=== PATIENT | male | born 1970 | race Caucasian/White ===

== ENCOUNTER → 2017-09-24 08:30 | Outpatient (CLI) | payer OTHER, SELFPAY ==
--- NOTE | 2017-09-24 08:35 | RAD_ITS ---
STUDY: X-RAY - ESOPHAGUS (BARIUM SWALLOW) WITH FLUOROSCOPY REASON FOR EXAM: Male, 47 years old. Dysphagia. TECHNIQUE: 15 view(s) of the esophagus were obtained following swallowing of barium. FLUOROSCOPY TIME (if supplied): (0:33) minutes/seconds COMPARISON: None. FINDINGS: There is no demonstrated esophageal foreign body. There is no demonstrated stricture or mucosal abnormality. Normal gastroesophageal junction, without a demonstrated hiatal hernia. The patient ingested a 12 mm tablet of barium without any difficulty. Normal visualized aortic arch and descending thoracic aorta. Normal visualized pulmonary parenchyma. Normal visualized osseous structures of the thorax. RAD/Esophagus Only IMPRESSION: Normal plain film x-ray examination (barium swallow) of the esophagus. Electronically Signed: Dre Luna MD at 9:37 EDT Tel [phone], Service support ,
== END ==
PROVIDERS: Family Provider Internal Medicine; PCP Internal Medicine; Visit Provider Internal Medicine Gastroenterology
DX: R13.10 Dysphagia, unspecified (principal)
CPT/HCPCS: 74220

== ENCOUNTER → 2018-07-09 08:55 | Outpatient (CLI) | payer OTHER, SELFPAY ==
[2018-07-09 10:08] LABS: Absolute Lymphocyte Count 1.43 X10^3/ul (0.83-4.51); Absolute Neutrophil Count 4.3 X10^3/uL (2.0-7.7); Basophil# 0.03 X10^3/uL; Basophil% 0.5 % (0-1); Eosinophil# 0.18 X10^3/uL; Eosinophils% 2.7 % (0-5); Hematocrit 46.3 % (40-54); Hemoglobin 15.6 g/dl (13.0-16.5); Lymphocyte # 1.43 X10^3/ul (4.0); Lymphocyte % 21.8 % (19-41); Mean Corp Hgb Conc 33.7 g/gl (32-36); Mean Corpuscular Hgb 31.6 pg (27.0-32.0); Mean Corpuscular Volume 93.7 fL (80-94); Mean Platelet Vol. 11.5 fl (6.2-12.0); Monocyte# 0.67 X10^3/uL; Monocyte% 10.2 % (0-10); Neutrophil # 4.26 X10^3/uL (2.7-7.7); Neutrophil % 64.8 % (47-70); Platelet Count 267 K/mm3 (150-450); RBC Distribution Width CV 12.4 % (11.6-14.6); RBC Distribution Width SD 41.8 fl (35.1-43.9); Red Blood Count 4.94 M/mm3 (4.6-6.2); White Blood Count 6.6 K/mm3 (4.4-11.0)
[2018-07-09 10:12] LABS: POSITIVE COUNT NO; POSITIVE DIFFERENTIAL NO; POSITIVE MORPHOLOGY NO
[2018-07-09 10:14] LABS: Erythrocyte Sedimentation Rate 4 mm/hr (0-15)
[2018-07-09 10:20] LABS: CRP < 2.90 mg/L (0.0-3.0); Rheumatoid Factor < 10.0 IU/mL (<15); Uric Acid 5.2 mg/dL (3.5-7.2)
[2018-07-11 11:22] LABS: ANTINUCLEAR ANTIBODIES DIRECT Negative (Negative)
--- OUTSIDE RECORDS SUMMARY | 2018-09-10 05:32 | XMS RPT_ITS ---
:1970 Author Organization [facility] Address [address] [place] [address] [place] [address] Phone Care Team Providers Name Role Phone Zoë Carrero PA-C Unavailable Reason for Visit Reason For Visit Description Start Date Postop - 1st visit Preliminary reason for visit data, not yet signed by the author as of right shoulder post Right glenohumeral debridement debriding capsule labrum cartilage to both anterior and posterior portals Capsular release Biceps tenodesis Subacromial decompression with acromioplasty Distal clavicle excision on 06/12/2018 Preliminary reason for visit data, not yet signed by the author as of Chief Complaint Chief Complaint Description Start Date right shoulder post Right glenohumeral debridement debriding capsule labrum cartilage to both anterior and posterior portals Capsular release Biceps tenodesis Subacromial decompression with acromioplasty Distal clavicle excision on 06/12/2018 Preliminary chief complaint data, not yet signed by the author as of Instructions Instruction Description Start Date Patient advised to follow-up with Primary Care Physician for BMI management. Plan of Care Type Date Detail Appointment 10:30 AM Zoë Carrero PA-C, [address] [facility], [address], [place], [address], Appointment 09:15 AM Anand Ochoa MD, [address] [facility], [address], [place], [address], Medications Medication Instructions Start Stop Generic Name NDC Provider Date Date PERCOCET 5-325 Take 1-2 tablets OXYCODONE-ELAINA [id number] Zoë MG TABS by mouth every 4 4 TAMINOPHEN [place] hours as needed PA-C for pain PERCOCET 5-325 Take 1-2 tablets OXYCODONE-ELAINA 82293024676 Zoë MG TABS by mouth every 4 6 TAMINOPHEN [place] hours as needed PA-C for pain NABUMETONE 750 1 tablet daily NABUMETONE 09392837780 Anand R MG TABS 6 Don HOPKINS VITAMIN E CAPS 1 tablet daily VITAMIN E 50296149409 Anand R 6 CAPS oDn HOPKINS IBUPROFEN 200 As needed IBUPROFEN [id number] Anand R MG TABS 6 Don HOPKINS [facility] Two tablets GLUCOSAMINE-C 60393026714 Anand R GLUCOSAMINE-CH daily 6 HONDROITIN Don HOPKINS ONDROITIN TABS TABS BEE POLLEN Two capsules BEE POLLEN 48911346216 Anand R CAPS daily 6 CAPS Don HOPKINS Conditions or Problems Problem Name Problem Onset Status Entry Provider Comment Standard Annotate Code Date Date Description Primary M19.011 Active Anand R 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 Vital Signs Date Name Value Unit Description BMI (Body Mass 28.35 kg/m2 Body Mass Index Index) [Ratio] Preliminary vital sign data, not yet signed by the author as of BP Diastolic 76 mm[Hg] blood pressure, diastolic Preliminary vital sign data, not yet signed by the author as of BP Systolic 116 mm[Hg] blood pressure, systolic Preliminary vital sign data, not yet signed by the author as of Heart Rate 71 /min pulse rate E&M Preliminary vital sign data, not yet signed by the author as of Height 74 [in_us] height E&M Preliminary vital sign data, not yet signed by the author as of Height 188 cm height in centimeters E&M Preliminary vital sign data, not yet signed by the author as of Weight Measured 220 [lb_av] weight E&M Preliminary vital sign data, not yet signed by the author as of Weight Measured 100 kg weight in kilograms E&M Preliminary vital sign data, not yet signed by the author as of Results Date Name Value Unit Range Flag Description Office Visit: Postop - 1st visit, Rm: 41 MEDS REVIEW Done Documentation of current medications (procedure) Preliminary observation data, not yet signed by the author as of Preliminary observation data, not yet signed by the author as of Clinical Summary: HMSPatientID OOP account number Procedures Code Procedure Name Date Entry Date CPT-67999 Physical Therapy G8730 Pain assessment documented as positive - follow-up documented G8427 Current medications documented 1036F Tobacco screening was negative - non user G8417 BMI documented as above normal parameters - follow-up documented G8783 Blood pressure within normal parameters - no follow-up required 1006F Osteoarthritis symptoms and functional status assessed [facility]-[id number] Patient Encounter Medications Administered No information available. Immunizations No information available. Advance Directives There may be information available, but it has not been provided by the sender. Assessments There may be information available, but it has not been provided by the sender. Review of Systems There may be information available, but it has not been provided by the sender. Family History There may be information available, but it has not been provided by the sender. History of Past Illness There may be information available, but it has not been provided by the sender. History of Present Illness There may be information available, but it has not been provided by the sender.
--- OUTSIDE RECORDS SUMMARY | 2018-09-10 05:32 | XMS RPT_ITS ---
:1970 Author Organization [facility] Address [address] [place] [id number] Phone Care Team Providers Name Role Phone Anand Ochoa MD Reason for Visit Reason For Visit Description Start Date Preop conference Preliminary reason for visit data, not yet signed by the author as of right shoulder pain Preliminary reason for visit data, not yet signed by the author as of Chief Complaint Chief Complaint Description Start Date right shoulder pain Preliminary chief complaint data, not yet signed by the author as of Instructions Instruction Description Start Date Patient advised to follow-up with Primary Care Physician for BMI management. Plan of Care Type Date Detail Appointment 08:30 AM Anand Ochoa MD, [address] [facility], [address], [place], [address], Appointment 08:30 AM Anand Ochoa MD, [address] [facility], [address], [place], [address], Appointment 10:00 AM Zoë Gray PA-C, [address] [facility], [address], [place], [address], Medications Medication Instructions Start Stop Generic Name NDC Provider Date Date NABUMETONE 750 1 tablet daily NABUMETONE [id number] Anadn Vernon MG TABS 6 Don HOPKINS VITAMIN E CAPS 1 tablet daily VITAMIN E 42566383396 Anand Vernon 6 CAPS Don HOPKINS IBUPROFEN 200 As needed IBUPROFEN 95024170748 Anand R MG TABS 6 Don HOPKINS [facility] Two tablets GLUCOSAMINE-C 27567494047 Anand R GLUCOSAMINE-CH daily 6 HONDROITIN Don HOPKINS ONDROITIN TABS TABS BEE POLLEN Two capsules BEE POLLEN 69161611001 Anand R CAPS daily 6 CAPS Don HOPKINS Conditions or Problems Problem Name Problem Onset Status Entry Provider Comment Standard Annotate Code Date Date Description Primary M19.011 Active Anand R Primary osteoarthritis (ICD-10-C / Don HOPKINS osteoarthrit right shoulder M) is, right shoulder Allergies, Adverse Reactions, Alerts Allergy Name Reaction Start Date Severity Status Provider Description VICODIN Itch Severe Active Anand R Don (HYDROCODONE-A CETAMINOPHEN TABS) Social History No information available. Vital Signs Date Name Value Unit Description BMI (Body Mass 28.73 kg/m2 Body Mass Index Index) [Ratio] Preliminary vital sign data, not yet signed by the author as of BP Diastolic 79 mm[Hg] blood pressure, diastolic Preliminary vital sign data, not yet signed by the author as of BP Systolic 111 mm[Hg] blood pressure, systolic Preliminary vital sign data, not yet signed by the author as of Heart Rate 73 /min pulse rate E&M Preliminary vital sign data, not yet signed by the author as of Height 74 [in_us] height E&M Preliminary vital sign data, not yet signed by the author as of Height 188 cm height in centimeters E&M Preliminary vital sign data, not yet signed by the author as of Weight Measured 223 [lb_av] weight E&M Preliminary vital sign data, not yet signed by the author as of Weight Measured 101 kg weight in kilograms E&M Preliminary vital sign data, not yet signed by the author as of Results Date Name Value Unit Range Flag Description Office Visit: Preop conference, Rm: 40 MEDS REVIEW Done Documentation of current medications (procedure) Preliminary observation data, not yet signed by the author as of MRI HX of the right MRI (magnetic shoulder on resonance 11/07/2017 at imaging) history [facility] Preliminary observation data, not yet signed by the author as of XRAY HX of the right xray history shoulder on 08/2017 at [place] Preliminary observation data, not yet signed by the author as of Preliminary observation data, not yet signed by the author as of Clinical Summary: HMSPatientID OOP account number Procedures Code Procedure Name Date Entry Date CPT-42832 Physical Therapy [id number] POLAR CARE [place] COMBO - SHOULDER (BREG) [id number] INTELLO-BARB PAD - SHOULDER (BREG) G8730 Pain assessment documented as positive - follow-up documented G8427 Current medications documented 1036F Tobacco screening was negative - non user G8417 BMI documented as above normal parameters - follow-up documented G8783 Blood pressure within normal parameters - no follow-up required 1006F Osteoarthritis symptoms and functional status assessed [facility]-[id number] Patient Encounter Medications Administered No information available. [...]
--- OUTSIDE RECORDS SUMMARY | 2018-09-10 05:32 | XMS RPT_ITS ---
:1970 Author Organization [facility] Address [facility] [place] [address] Phone Care Team Providers Name Role Phone Anand Ochoa MD Reason for Visit Reason For Visit Description Start Date New - 1st visit with practice Preliminary reason for visit data, not yet [...] Plan of Care Type Date Detail Appointment 02:30 PM Anand Ochoa MD, [address] [facility], [place], [address], Medications Medication Instructions Start Stop Generic Name [facility] Provider Date Date IBUPROFEN 800 Take 1 tablet by IBUPROFEN 03735005272 Anand R MG TABS mouth 3 times a 6 Don HOPKINS day IBUPROFEN 200 As needed IBUPROFEN 58157115991 Anand R MG TABS 6 Don HOPKINS [facility] Two tablets GLUCOSAMINE-C 66652064127 Anand Vernon GLUCOSAMINE-CH daily 6 HONDROITIN Don HOPKINS ONDROITIN TABS TABS BEE POLLEN Two capsules BEE POLLEN 19262419463 Anand Vernon CAPS daily 6 CAPS Don HOPKINS Conditions or Problems Problem Name Problem Onset Status Entry Provider Comment Standard Annotate Code Date Date Description Primary M19.011 Active Anand Vernon Primary osteoarthritis (ICD-10-C / Don HOPKINS osteoarthrit right shoulder M) is, right shoulder Allergies, Adverse Reactions, Alerts Allergy Name Reaction Start Date Severity Status Provider Description VICODIN Itch Severe Active Anand R Don (HYDROCODONE-A CETAMINOPHEN TABS) Social History Concept Description Observation Name Observation Value Units Start Date Alcohol intake ALCOHOL COMM socially Preliminary social history data, not yet signed by the author as of Alcohol use ETOH USE Yes Preliminary social history data, not yet signed by the author as of Details of drug DRUG USE No misuse behavior Preliminary social history data, not yet signed by the author as of 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 Preliminary social history data, not yet signed by the author as of Never smoker SMOK STATUS never smoker Preliminary social history data, not yet signed by the author as of Vital Signs Date Name Value Unit Description BMI (Body Mass 28.73 kg/m2 Body Mass Index Index) [Ratio] Preliminary vital sign data, not yet signed by the author as of BP Diastolic 79 mm[Hg] blood pressure, diastolic Preliminary vital sign data, not yet signed by the author as of BP Systolic 126 mm[Hg] blood pressure, systolic Preliminary vital sign [...] Value Unit Range Flag Description Office Visit: New - 1st visit with practice, Rm: 40 MEDS REVIEW Done Documentation of current medications (procedure) Preliminary observation data, not yet signed by the author as of SMOK STATUS never smoker Tobacco smoking status NHIS Preliminary observation data, not yet signed by the author as of Preliminary observation data, not yet signed by the author as of MRI HX of the Right MRI (magnetic shoulder on resonance 11/07/2017 at imaging) history [facility] Preliminary observation data, not yet signed by the author as of XRAY HX of the Right xray history shoulder on 08/22/2017 at [facility] Preliminary observation data, not yet signed by the author as of Clinical Summary: Scanned ROS Summary ROS: Denies genitourinary review of systems, E&M ROS: GI Denies ROS gastrointestinal E&M ROS ENDO Denies endocrine ROS ROS MSK COMM Joint ROS Musculoskeletal Pain,Stiffness comments ROS:MUSCSKEL Complains ROS musculoskeletal E&M ROS: PSYCH Denies ROS psychiatric E&M ROS HEME Denies ROS hematologic/lymphatic E&M ROS SKIN Denies ROS skin E&M ROS ENT Denies ROS ENT E&M ROS:GENERAL Denies ROS general E&M ROS: NEURO Denies ROS neurological E&M ROS:PULMON Denies ROS pulmonary E&M ROS: CARDIAC Denies ROS cardiovascular E&M Clinical Summary: HMSPatientID OOP account number Procedures Code Procedure Name Date Entry Date CPT-28242 Major Joint or Bursa injection G8730 Pain assessment documented as positive - follow-up documented G8427 Current medications documented 1036F Tobacco screening was negative - non user G8417 BMI documented as above normal parameters - follow-up documented G8783 Blood pressure within normal parameters - no follow-up required 1006F Osteoarthritis symptoms and functional status assessed [facility]-[id number] Patient Encounter Medications Administered No information available. [...]
--- OUTSIDE RECORDS SUMMARY | 2018-09-10 05:32 | XMS RPT_ITS ---
:1970 Author Organization OHIP Care Team Providers Name Role Phone MALICK LEOS MD Admitting Unavailable MALICK LEOS MD Attending Unavailable MALICK LEOS MD Primary Care Unavailable Faith DOMerlynShivani Attending Unavailable Fast DO, Lavonne A Referring Unavailable Faith MILLER, Shivani Consulting Unavailable Philip Masterson Attending Unavailable Philip Masterson Referring Unavailable Faith Shivani Primary Care Unavailable Benjamin Brothers Attending Unavailable Benjamin Brothers Referring Unavailable Faith Shivani Primary Care Unavailable PROBLEMS PROBLEMS DATE TYPE CONDITION / CODE ATTENDING STATUS SOURCE 07/09/2018 Unknown M19.042 - Philip Masterson Active Karolina [facility], [facility] left hand / Repository M19.042(ICD-10) PROCEDURES PROCEDURES No Procedure Records FoundRESULTS RESULTS CBC W/DIFF, AUTOMATED Collected: 07/09/2018 Status: F Source: [place] 9:00 AM [facility] REPOSITORY TYPE CODE TESTS RESULT OUT OF RANGE REFERENCE UNITS LAB L100.1000 4.4-11.0 K/mm3 Normal WBC 6.6 LAB L100.1200 4.6-6.2 M/mm3 Normal RBC 4.94 LAB L100.1300 13.0-16.5 g/dl Normal HGB 15.6 LAB L100.1400 40-54 % Normal HCT 46.3 LAB L100.1500 80-94 fL Normal MCV 93.7 LAB L100.1600 27.0-32.0 pg Normal MCH 31.6 LAB L100.1700 32-36 g/gl Normal MCHC 33.7 LAB L100.1810 11.6-14.6 % Normal RDW CV 12.4 LAB L100.1820 35.1-43.9 fl Normal RDW SD 41.8 LAB L100.1900 150-450 K/mm3 Normal PLT 267 LAB L100.2000 6.2-12.0 fl Normal MPV 11.5 LAB L100.2100 47-70 % Normal NEUT% 64.8 LAB L100.2200 19-41 % Normal LY% 21.8 LAB L100.2300 0-10 % High MONO% 10.2 LAB L100.2400 0-5 % Normal EO% 2.7 LAB L100.2500 0-1 % Normal BASO% 0.5 LAB L100.2550 0.0-0.9 % Normal IM GRAN % 0.000 Result Comment: IG% - Immature Granulocytes (promyelocytes, myelocytes and metamyelocytes) > 1% indicates that a LEFT SHIFT is Present. LAB L100.2620 2.0-7.7 X10 3/uL Normal Absolute Neut 4.3 LAB L100.2720 0.83-4.51 X10 3/ul Normal Absolute Lymph 1.43 Performed By: #### L100.0100, L101.9900 #### [facility] [address] [place], [place], [id number] ERYTHROCYTE SED RATE Collected: 07/09/2018 Status: F Source: [place] 9:00 AM [facility] REPOSITORY TYPE CODE TESTS RESULT OUT OF RANGE REFERENCE UNITS LAB L102.0000 0-15 mm/hr Normal SED RATE 4 Performed By: #### L100.0100, L101.9900 #### [facility] [address] [place], [place], [id number] URIC ACID Collected: 07/09/2018 Status: F Source: [place] 9:00 AM [facility] REPOSITORY TYPE CODE TESTS RESULT OUT OF RANGE REFERENCE UNITS LAB L501.1400 3.5-7.2 mg/dL Normal URIC 5.2 Result Comment: The drugs N-Acetylcysteine and Metamizole may falsely depress this assay. Performed By: #### L501.1400, L501.6710, L505.7010 #### [facility] [address] [place], [place], [address] CRP Collected: 07/09/2018 Status: F Source: [place] 9:00 AM [facility] REPOSITORY TYPE CODE TESTS RESULT OUT OF RANGE REFERENCE UNITS LAB L501.6710 0.0-3.0 mg/L Normal < 2.90 C-REACTIVE PROT Result Comment: C-Reactive Protein (CRP) provides useful information for the diagnosis, therapy and monitoring of inflammatory processes and associated diseases. For the evaluation of Relative Risk for Cardiovascular Disease, a High Sensitivity CRP (HSCRP) should be ordered. Performed By: #### L501.1400, L501.6710, L505.7010 #### [facility] [address] [facility]. [place], [place], [address] RHEUMATOID FACTOR Collected: 07/09/2018 Status: F Source: [place] 9:00 AM [facility] REPOSITORY TYPE CODE TESTS RESULT OUT OF RANGE REFERENCE UNITS LAB L505.7010 <15 IU/mL Normal RHEUMATOID FAC < 10.0 Performed By: #### L501.1400, L501.6710, L505.7010 #### [facility]. [place], [place], [address] ANTINUCLEAR ANTIBODIES Collected: 07/09/2018 Status: F Source: [place] DIRECT 9:00 AM [facility] REPOSITORY TYPE CODE TESTS RESULT OUT OF RANGE REFERENCE UNITS LAB L3100.5475 Negative Normal Negative ALF-DIRECT Result Comment: Performed at: - [facility] [address] [id number] Box Finisher: Benjamin Crane PhD, Phone: [phone] Performed By: #### L3100.5475 #### [facility] (refer to report for specific site) refer to report for address and phone number CV ECHO COMPLETE Observed: 03/03/2018 Status: F [facility] [place] [address] Patient: LEEANNE ANDRADE Phone#: : 1970 Age: 47 Gender: M Pt. Type: Out Account: [id number] Location: Ordering: MALICK DemianYuki VIGNESHSUMEET Exam Date: 03/03/2018/8:42 Family Phys: Charge Code: [id number] Physician: [place] Order #: [id number] DLP Dose#: PROCEDURE: ECHOCARDIOGRAM WITH DOPPLER AND COLOR FLOW HISTORY: 47-year-old male with family history of CAD INDICATIONS: Murmur TECHNIQUE: A 2-D ultrasound, color spectral Doppler and M-mode evaluation of the heart and great vessels. PATIENT MEASUREMENTS: Height (in.): 74 BSA: 2.3 Weight (lbs.): 220 BP: 130/82 Head End Desizing Machine Operator: HOPE M MODE 2D MEASUREMENTS AND CALCULATIONS: LVIDd: 5.29 cm LVIDs: 3.58 cm IVSd: 1.23 cm LVPWd: 0.96 cm FS: 32.28 % Ao Root diam: 3.67 cm LA diam: 3.51 cm LA Volume Index: 20.9 mL/m2 LA A4 Area: 14.6 cm RA A4 Area: 16.1 cm2 RVDd: 2.96 cm TAPSE: 18 mm DOPPLER MEASUREMENTS AND CALCULATIONS MITRAL MV E MAX willian: 58.96 cm/s MV A MAX wlilian: 48.76 cm/s MV E-A ratio: 1.21 Lat Peak E' Willian 8 cm/s Septal Peak E' WILLIAN 7 cm/s Continued Report - Page 2 of 3 Patient: LEEANNE ANDRADE Phone#: : 1970 Age: 47 Gender: M Pt. Type: Out Account: [id number] Location: Ordering: MALICK DemianYuki DAFNE Exam Date: 03/03/2018/8:42 Family Phys: Charge Code: [id number] Physician: [place] Order #: [id number] DLP Dose#: Lateral E./E.' 7.3 Medial E./E.' 8.9 AORTIC Ao V2 max: 102.12 cm/s Ao max P.17 mm[Hg] LV V1 Max 84.10 cm/s LV V1 Max PG 2.83 mm[Hg] PULMONIC PA V2 Max 103.83 cm/s PA Max PG 4.31 mm[Hg] TRICUSPID TR Max Willian 272.91 cm/s TR max PG 29.82 mm[Hg] RVSP 33 mmHg 2D/M-MODE AND COLOR FLOW LEFT VENTRICLE: Mild concentric left ventricle hypertrophy. Normal left ventricle size. Normal wall motion and systolic function, ejection fraction 55-60%. Normal diastolic function for age. WALL MOTION: 1 - Basal anterior: Normal. 7 - Mid anterior: Normal. 13 - Apical anterior: Normal. 2 - Basal anteroseptal: Normal. 8 - Mid anteroseptal: Normal. 14 - Apical septal: Normal. 3 - Basal inferoseptal: Normal. 9 - Mid inferoseptal: Normal. 15 - Apical inferior: Normal. 4 - Basal inferior: Normal. 10-Mid inferior: Normal. 16 - Apical lateral: Normal. 5 - Basal inferolateral: Normal. 11-Mid inferolateral: Normal. 6 - Basal anterolateral: Normal. 12-Mid anterolateral: Normal. RIGHT VENTRICLE: Normal size and systolic function. LEFT ATRIUM: Normal RIGHT ATRIUM: Normal MITRAL VALVE: Mild mitral annular calcification. Normal leaflet structure and mobility. Trace mitral regurgitation. TRICUSPID VALVE: Normal leaflet structure and mobility. Trace tricuspid regurgitation. AORTIC VALVE: Trileaflet aortic valve with normal leaflet structure and mobility. No significant aortic stenosis or regurgitation. PULMONIC VALVE: Normal leaflet structure and mobility. Trace pulmonic insufficiency. AORTIC ROOT: Normal size IVC/SVC: Normal size and normal respirophasic response PULMONARY VEINS: Normal flow pattern PERICARDIUM: No significant pericardial effusion CONCLUSION: Continued Report - Page 3 of 3 Patient: LEEANNE ANDRADE Phone#: : 1970 Age: 47 Gender: M Pt. Type: Out Account: [id number] Location: Ordering: MALICK LEOS Exam Date: 03/03/2018/8:42 Family Phys: Charge Code: [id number] Physician: [place] Order #: [id number] DLP Dose#: 1. Mild concentric left ventricle hypertrophy with normal wall motion and systolic function, ejection fraction 55- 60%. 2. Normal right ventricle size and systolic function. 3. Mild mitral annular calcification with trace mitral regurgitation. 4. Normal diastolic function for age. 5. RVSP estimated to be 33 mmHg. 6. As compared to the last study report of 04/30/2013, no significant changes were noted. Dictated by: NICHOLAS MYERS on 03/03/2018 at 11:33 Approved by: NICHOLAS MYERS on 03/03/2018 at 11:33 ESOPHAGUS ONLY Observed: 09/24/2017 Status: F Source: [place] 8:33 AM [facility] REPOSITORY [facility] Imaging Services [address] [place] [address] Esophagus Only MR#: [id number] Acct: [id number] Name: ANDRADEAnyiEW Rep #: [id number] : 1970 47 From: Dre Luna MD PCP: Shivani Cuevas DO Status: REG CLI Study: Esophagus Only Date of Exam: 09/24/17 Exam# [id number] Ordering Dr: Benjamin Brothers MD STUDY: X-RAY - ESOPHAGUS (BARIUM SWALLOW) WITH FLUOROSCOPY REASON FOR EXAM: Male, 47 years old. Dysphagia. TECHNIQUE: 15 view(s) of the esophagus were obtained following swallowing of barium. FLUOROSCOPY TIME (if supplied): (0:33) minutes/seconds COMPARISON: None. FINDINGS: There is no demonstrated esophageal foreign body. There is no demonstrated stricture or mucosal abnormality. Normal gastroesophageal junction, without a demonstrated hiatal hernia. The patient ingested a 12 mm tablet of barium without any difficulty. Normal visualized aortic arch and descending thoracic aorta. Normal visualized pulmonary parenchyma. Normal visualized osseous structures of the thorax. RAD/Esophagus Only IMPRESSION: Normal plain film x-ray examination (barium swallow) of the esophagus. Electronically Signed: Dre Luna MD at 9:37 EDT Tel [phone], Service support , CC: Shivaniabbey Cuevas DO; Benjamin Brothers Addressing Machine Operator: Signed ALLERGIES ALLERGIES No Allergies Records FoundENCOUNTERS ENCOUNTERS ADMIT/DISCHARGE ACCOUNT ADMITTING ENCOUNTER LOCATION SOURCE NUMBER CLASS 07/09/2018 [id number] Ambulatory [place] 3 [facility] ing:MTLAB Repository 07/09/2018 [id number] Ambulatory Building:[facility] [place] Practices Repository 03/03/2018/ [id number] [facility] [address] [place] [address] Repository 09/24/2017 [id number] Ambulatory [place]ol[place] 9 [facility] ing:RAD Repository PAYERS PAYERS ENCOUNTER GUARANTOR PAYER SUBSCRIBER SOURCE 07/09/2018 J JAYLON Primary J JAYLON Karolina [id number] Insurance:MEDICAL COLLINB: [facility] [id number]: Repository [address]Omh: [id number] [phone] (HP) Date:[id number] [address]JY: 07/09/2018 Secondary NOT GIVENUNK Karolina Insurance:SELF PAY [facility] Number: Effective Repository Date:2018-07-09 07/09/2018 Leeanne Myers: Primary Leeanne Myers: [facility] [id number] Insurance:Medical [id number] Repository [place], [place] Number: [place], [place] [address]Aro: [phone]) [id number]: (HP)Tel: Date:5110-25-60Yuit [phone] (HP) Name:[facility] Box () [address] [place] [id number]: 07/09/2018 Secondary Leeanne Myers: OHIP Practices Insurance:Medical [id number] Repository [facility] Number: PAN Celaya [id number] [id number]: Date:2010-06-17 - ~(33 [id number] 0 (HP) Name:[facility] [address] [place] [address] [phone]: 03/03/2018 LEEANNE IYER Primary JAYLON POLANCOB: Insurance:MEDICAL JDOB: [facility] [id number] [facility] Repository [facility] Number: Pan CELAYA [id number]: [id number] Date:Plan Name: () 09/24/2017 J Jaylno Primary J JAYLON Turcios [id number] Insurance:MEDICAL MCCOYDOB: [facility] [id number] Number: Repository [id number]: [phone] [id number] [phone] () Date:[id number] [address]CK: 09/24/2017 Secondary NOT GIVENUNK [place] Insurance:SELF PAY [facility] Number: Effective Repository Date:2017-09-18
== END ==
PROVIDERS: Family Provider Internal Medicine; PCP Internal Medicine; Referring Provider Orthopaedic Surgery; Visit Provider Orthopaedic Surgery
DX: M19.042 Primary osteoarthritis, left hand (principal)
CPT/HCPCS: 36415; 84550; 85025; 85652; 86038; 86140; 86431

== ENCOUNTER → 2019-01-27 15:16 | Outpatient (CLI) | payer OTHER, SELFPAY ==
[2019-01-27 15:44] LABS: Absolute Lymphocyte Count 1.67 X10^3/uL (0.83-4.51); Absolute Neutrophil Count 4.9 X10^3/uL (2.0-7.7); Basophil# 0.04 X10^3/uL; Basophil% 0.5 % (0-1); Eosinophil# 0.15 X10^3/uL; Hematocrit 47.4 % (40-54); Lymphocyte # 1.67 X10^3/ul (4.0); Lymphocyte % 22.1 % (19-41); Mean Corp Hgb Conc 33.8 g/dL (32-36); Mean Corpuscular Hgb 31.8 pg (27.0-32.0); Mean Corpuscular Volume 94.2 fL (80-94); Mean Platelet Vol. 11.6 fl (6.2-12.0); Monocyte# 0.77 X10^3/uL; Monocyte% 10.2 % (0-10); NRBC Flagged by Analyzer 0 % (0-5); Neutrophil # 4.91 X10^3/uL (2.7-7.7); Neutrophil % 64.9 % (47-70); Platelet Count 231 K/mm3 (150-450); RBC Distribution Width CV 11.6 % (11.6-14.6); RBC Distribution Width SD 39.9 fl (35.1-43.9); Red Blood Count 5.03 M/mm3 (4.6-6.2); White Blood Count 7.6 K/mm3 (4.4-11.0)
[2019-01-27 16:30] LABS: ALB/GLOB Ratio 1.2 RATIO (0.9-2.4); AST(SGOT) 18 U/L (15-37); Alanine Aminotransfer ALT/SGPT 25 U/L (16-61); Albumin, Serum 3.8 g/dL (3.2-5.0); Alkaline Phosphatase 51 U/L (45-117); Anion Gap 6 (5-15); BUN 22 mg/dL (7-18); BUN/Creat Ratio 23.4 RATIO (10-20); Calcium,Total 8.8 mg/dL (8.5-10.1); Chloride 108 mmol/L (98-107); Creatinine, Serum 0.94 mg/dL (0.70-1.30); EST Glomerular Filtration Rate 90 mL/min (>60); Est Glom Filt Rate - Afr Amer 109 mL/min (>60); Globulin 3.2 g/dL (2.2-4.2); Glucose 79 mg/dL (74-106); Sodium Level 140 mmol/L (136-145); Thyroid Stim Hormone (TSH) 1.74 uIU/mL (0.358-3.74)
[2019-01-27 16:45] LABS: CPK Total, Creatine Kinase 123 U/L (39-308)
== END ==
PROVIDERS: Family Provider Internal Medicine; PCP Internal Medicine; Referring Provider Internal Medicine; Visit Provider Internal Medicine
DX: R68.84 Jaw pain (principal)
CPT/HCPCS: 80053; 82550; 84443; 84484; 85025

== ENCOUNTER 2019-01-27 17:15 | Emergency (ER) | payer OTHER, SELFPAY ==
[2019-01-27 17:16] VITALS: BP 132/83; PULSE 77; RESP 16; TEMP 36.2; O2SAT 95; BMI 28.2
--- NOTE | 2019-01-27 17:26 | EKG12_ITS ---
Test Reason : ABN LABS Blood Pressure : / mmHG Vent. Rate : 080 BPM Atrial Rate : 080 BPM P-R Int : 164 ms QRS Dur : 100 ms QT Int : 372 ms P-R-T Axes : 047 -08 023 degrees QTc Int : 429 ms Normal sinus rhythm with sinus arrhythmia Normal ECG Confirmed by MELBA CARRILLO ([id number]), videotape editor SUE SALDIVAR ([id number]) on 01/29/2019 2:28:07 PM Referred By: Lavonne Schultz Confirmed By:MELBA CARRILLO
--- NOTE | 2019-01-27 17:28 | RAD_ITS ---
STUDY: X-RAY CHEST REASON FOR EXAM: Male, 48 years old. Chest pain TECHNIQUE: Single AP portable view of the chest. COMPARISON: October 21, 2016 chest x-ray FINDINGS: The lungs are clear and expanded. There is no demonstrated pleural abnormality. Normal size heart. Normal mediastinum and kenan. Normal visualized pulmonary arteries. Normal visualized aortic arch and descending thoracic aorta. Normal visualized thoracic spine. Normal visualized ribs, clavicles, and shoulders. There is no demonstrated abnormality of the visualized soft tissue structures of the upper abdomen. RAD/Chest 1 View (Portable) IMPRESSION: Normal x-ray examination of the chest. Electronically Signed: Lissy Benites MD at 17:50 EDT Tel , Service support ,
[2019-01-27 18:02] LABS: Absolute Lymphocyte Count 1.67 X10^3/uL (0.83-4.51); Absolute Neutrophil Count 5.8 X10^3/uL (2.0-7.7); Basophil# 0.03 X10^3/uL; Basophil% 0.4 % (0-1); Eosinophil# 0.15 X10^3/uL; Eosinophils% 1.8 % (0-5); Hematocrit 44.4 % (40-54); Hemoglobin 15.4 g/dL (13.0-16.5); Lymphocyte # 1.67 X10^3/ul (4.0); Lymphocyte % 20.2 % (19-41); Mean Corp Hgb Conc 34.7 g/dL (32-36); Mean Corpuscular Hgb 32.4 pg (27.0-32.0); Mean Corpuscular Volume 93.3 fL (80-94); Mean Platelet Vol. 11.3 fl (6.2-12.0); Monocyte# 0.62 X10^3/uL; Monocyte% 7.5 % (0-10); NRBC Flagged by Analyzer 0 % (0-5); Neutrophil # 5.78 X10^3/uL (2.7-7.7); Neutrophil % 69.7 % (47-70); Platelet Count 205 K/mm3 (150-450); RBC Distribution Width CV 11.5 % (11.6-14.6); RBC Distribution Width SD 39.2 fl (35.1-43.9); Red Blood Count 4.76 M/mm3 (4.6-6.2); White Blood Count 8.3 K/mm3 (4.4-11.0)
--- NOTE | 2019-01-27 18:03 | ED.DCSUM_ITS ---
- ER Visit Summary Date of Service: 01/27/19 Chief Complaint: Jaw pain History of Present Illness: The patient is a 48 M presenting with jaw pain. Patient states around 8p.m. last night began having bilateral jaw pain. This lasted approximately 1.5 hours and he went to sleep. This morning around 930 he had similar symptoms lasted approximately 1 hour. He states he felt tired today. He denies chest pain or shortness of breath. He was unsure what was causing his symptoms and tried Benadryl at home with no relief. He saw his primary care physician who ordered outpatient blood work. His troponin was 0.795 drawn as outpatient. He was then sent to the ED. He has a family history of early heart disease and history of hyperlipidemia. Physical Examination: Vitals are stable. Patient is afebrile. Alert no acute distress. HEENT exam is unremarkable. Neck is supple. Lungs are clear and equal bilaterally. Heart is regular rate and rhythm. Abdomen is soft nontender nondistended. Extremities are unremarkable. Skin is warm and dry. No focal neurologic deficit. Remainder of exam is unremarkable. Emergency Department Course and Treatment: Patient was given aspirin on arrival. EKG is sinus rate of 80 with no acute ischemic changes. Chest x-ray is normal. CBC, chemistries normal except glucose 142, BUN 20. Troponin 1.49. Patient remains chest pain-free in the emergency department. He was given Lovenox subcutaneously. Patient requests [facility] for transfer. Discussed with [facility]. Disposition: Transfer to [facility] Impression: NSTEMI This note was generated with [employer] dictation software. It may contain incorrect words, spelling, and punctuation that were not noted in review of the chart prior to signing ED Disposition - Plan for ED Patient: Disposition: [facility] Referrals: Shivani Cuevas DO [STAFF PHYSICIAN] -
--- NOTE | 2019-01-27 18:23 | NURSING ---
lab called with critical troponin of 1.49
[2019-01-27 18:24] LABS: Anion Gap 7 (5-15); BUN 20 mg/dL (7-18); BUN/Creat Ratio 20.7 RATIO (10-20); Calcium,Total 8.4 mg/dL (8.5-10.1); Chloride 111 mmol/L (98-107); Creatinine, Serum 0.97 mg/dL (0.70-1.30); EST Glomerular Filtration Rate 87 mL/min (>60); Est Glom Filt Rate - Afr Amer 106 mL/min (>60); Glucose 142 mg/dL (74-106); Potassium 3.6 mmol/L (3.5-5.1); Sodium Level 143 mmol/L (136-145)
--- NOTE | 2019-01-27 18:35 | ED.RN ---
dr hoyt aware of elevated troponin. states will discuss with pt soon
[2019-01-27 18:39] VITALS: RESP 18
[2019-01-27 19:20] VITALS: PULSE 78; RESP 19; O2SAT 94
--- NOTE | 2019-01-27 20:22 | NURSING ---
ACCEPTED TO [facility] AT [facility] ROOM [id number] REPORT
[2019-01-27 21:19] VITALS: BP 108/85; PULSE 71; RESP 16; O2SAT 92
[2019-01-27] MEDS: Enoxaparin 100 MG/ML Syringe SC (21:20)
--- NOTE | 2019-01-27 21:26 | ED.RN ---
called [facility] to give report- RN will call back when available.
[2019-01-27 21:53] VITALS: BP 121/79; PULSE 67; RESP 13; O2SAT 94
== END 2019-01-27 22:58 | disposition short-term general hospital (02) ==
LOC: ED 18:09
PROVIDERS: Emergency Provider Emergency Medicine; Family Provider Internal Medicine; PCP Internal Medicine
DX: I21.4 Non-ST elevation (NSTEMI) myocardial infarction (principal)
CPT/HCPCS: 71045; 80048; 84484; 85025; 93005; 99285; A4216

== ENCOUNTER → 2019-02-06 14:59 | Outpatient (CLI) | payer OTHER, SELFPAY ==
[2019-01-27 17:16] VITALS: BMI 28.2
--- NOTE | 2019-02-06 15:29 | VDUE_ITS ---
Reason For Study: R/orelim to Thrombophlebitis Right Proximal Right jugular vein is spontaneous, widely patent, phasic, with no intraluminal echogenicity noted. Right subclavian vein is spontaneous, widely patent, phasic, with no intraluminal echogenicity noted. Right Lower Arm Right radial vein is compressible. Right ulnar vein is compressible. Right Arm Right axillary vein is spontaneous, patent, phasic, competent, compressible and demonstrates augmentation. Right brachial vein is compressible. Right cephalic vein is compressible. Right basilic vein is compressible. Patient Safety Prelim to aydin. Interpretation Summary Deep veins of the right upper extremity are patent and compressible segmentally. There is no evidence of deep vein thrombosis. The superficial veins of the right upper extremity, the basilic and cephalic veins, are patent and compressible. There is no evidence of right upper extremity superficial thrombophlebitis involving the veins imaged. Ordering Physician: Lavonne Schultz Referring Physician: Jim Pereira M.D. Performed By: Bina Roberts RVT ?
== END ==
PROVIDERS: Family Provider Internal Medicine; PCP Internal Medicine; Referring Provider Internal Medicine; Visit Provider Internal Medicine
DX: I25.2 Old myocardial infarction (principal)
CPT/HCPCS: 93931; 93971

== ENCOUNTER → 2019-02-12 08:56 | Outpatient (CLI) | payer OTHER, SELFPAY ==
[2019-01-27 17:16] VITALS: BMI 28.2
--- NOTE | 2019-02-12 09:37 | PCM.CR.HP2 ---
CR - History & Physical - General Arrival date:: 02/12/19 Arrival time:: 09:37 Date of Referral:: 02/12/19 Date of CR Evaluation:: 02/12/19 Referring Physician: Dr. Donte Schultz Primary Diagnosis: PCI, NSTEMI - History of Present Cardiac Event Onset Date: Enter Onset Date of cardiac illnesses in Comment field below Current stable Angina Pectoris:: No Acute Myocardial Infarction within 12 months:: Yes - 01/28/19 Coronary Artery Bypass Graft:: No Heart valve replacement or repair:: No PTCA or coronary stenting:: Yes - 01/28/19 Heart or Heart-Lung Transplant:: No Heart Failure EF <35%:: No - 62% Type of Symptoms:: jaw pain Interventions with present event:: PCI Were there any complications?: no - Medications Home Medications: Ambulatory Orders Medication Instructions Recorded Rosuvastatin Calcium [Crestor] 20 mg PO DAILY 01/27/19 Aspirin [Aspir 81] 81 mg PO DAILY 02/12/19 Bee Pollen 550 mg PO DAILY 02/12/19 Citalopram [Celexa] 10 mg PO DAILY 02/12/19 Co Q10 200 [Co Q-10] 100 mg PO DAILY 02/12/19 Glucos Sul 2Kcl/MSM/Chond/C/Mn 1 each PO DAILY 02/12/19 [Glucosamine Chondroitin Cap] Lorazepam [Ativan] 1 mg PO QHS 02/12/19 Metoprolol Succinate [Toprol Xl] 25 mg PO DAILY 02/12/19 Multivit-Min/Iron/Folic Acid/K 1 each PO DAILY 02/12/19 [Adults Multivitamin Tablet] Nitroglycerin [Nitrolingual [place]] 0.4 mg SL PRN PRN 02/12/19 [place]-3 Fatty Acids/Fish Oil [Fish 1 each PO DAILY 02/12/19 Oil 1,000 mg Capsule] Ticagrelor [Brilinta] 90 mg PO BID 02/12/19 Triamcinolone Acetonide [Nasacort] 10.8 ml NS PRN PRN 02/12/19 - Allergies Allergies/Adverse Reactions: Allergies acetaminophen [From Vicodin] Allergy (Verified 01/27/19 17:18) Hives hydrocodone [From Vicodin] Allergy (Verified 01/27/19 17:18) Hives - Sleep Disorder Evaluation Hx of Sleep Apnea: No Do you snore loudly (louder than talking or can be heard through closed doors)?: Yes Do you often feel tired/ fatigued/ sleepy during daytime?: Yes Has anyone observed you stop breathing during sleep?: Yes History of Hypertension (for STOP score): No STOP Results: Positive Advanced Directives - 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 Living Will: Yes Advance Directives Information Provided: Yes Advance Directives on File: No Past Medical History - Past Surgical History Surgical History: - - labrum surg deepa shoulders, left knee surg, other shoulder surg, foot surg, varicocele surg - Family History Summary Family History: Family History (Last Updated 02/12/19 @ 10:00 by Stevan Hurt RN) Father Coronary arteriosclerosis Grandfather Coronary arteriosclerosis Social History - Smoking History Smoking Status: Never smoker - Alcohol Use Alcohol Usage: Yes - social - Substance Abuse Hx Substance Use: No - Occupation Occupation (List type of work in comments):: Employed - [employer] - Hobbies, Recreation, Social Activities Hobbies: Farm Recreational Activities: I am able to engage in most, but not all activities Social Environment - Status Marital Status: - Current Living Arrangements Living Environment:: Spouse - Children How many children do you have?: 2 Do any of your children live nearby?: Yes - Safety Do you feel safe in your surroundings?: Yes - Assistance Do you need any assistance at home?: some Review of Systems - Review of Systems Hints: Right click = Denies (Slash). Left click = Reports ([place]) Review of Present Symptoms: Reports: Dizziness/Lightheadedness - occas vertigo, Fatigue, Appetite - Normal, Appetite - Special Diet. Denies: Shortness of Breath at Rest, Shortness of Breath with Exertion, PVD, Operative Discomfort, Angina, Wound Healing, Heart Arrhythmia/Irregularities, Sleep - Normal - awakens freq, Sexual Changes - Pain Is Patient Pain Free?: No Risk Factor Assessment - Vital Signs Pulse Ox: 97 - Pulse Pulse Rate: 60 Pulse Rhythm: Regular - Hypertension Blood Pressure Sitting - Right Arm: 92/66 Blood Pressure Sitting - Left Arm: 120/80 - Blood Cholesterol/Lipids Total Cholesterol (mg/dL) Goal = less than 200 mg/dL: 150 HDL Cholesterol (mg/dL) Goal = less than 40 mg/dL: 45 - Obesity Height: 6 ft 2 in Weight:: 221 lb Weight in Pounds: 221.0 lbs Body Mass Index (BMI): 28.3 Desired Body Weight: 215 Realistic Weight Goal (Loss of 1-2 lbs/week): 215 Nutritional Referral for Obesity: Yes - Physical Inactivity Physical Inactivity: Physically demanding job - Risk Stratification Risk Guidelines: Lowest Risk: Risk Factor for Smoking, Risk Factor for Hypertension, Risk Factor for Sedentary Lifestyle, Moderate Risk: Risk Factor for Dyslipidemia, Risk Factor for Diabetes, Risk Factor for Obesity, Risk Factor for Depression - For Smoking Smoking Risk Guidelines: Smoking Low Risk: None or quit greater than 6 months ago. Smoking Moderate Risk: Smoker or quit 6 months or less ago. Smoking High Risk: Smoker - For Dyslipidemia Dyslipidemia Risk Guidelines: Low Risk: Moderate Risk: High Risk: 15-25% fat 25.1-29% fat >/= 30% fat. <7% sat fat 7-9% sat fat >9% sat fat. <150 mg chol 150-299 mg chol >/= 300 mg chol. LDL <100 LDL 100-129 LDL >/= 130. Chol/HDL ratio <5.0 Chol/HDL ratio 5.0-6.0 Chol/HDL ratio >6.0. Triglycerides <100 Triglycerides 100-149 Triglycerides >/= 150 - For Diabetes Mellitus Diabetes Risk Guidelines: Diabetes Low Risk: HgA1c <6.5% and/or FBG <120. Diabetes Moderate Risk: HgA1c 6.6-7.9% and/or FBG 120-180. Diabetes High Risk: HgA1c >/= 8% and/or FBG >180 - For Obesity/Overweight Obesity/Overweight Risk Guidelines: Obesity Low Risk: BMI <25.0. Obesity Moderate Risk: BMI 25-29.9. Obesity High Risk: BMI >/= 30.0 - For Hypertension Hypertension Risk Guidelines: Hypertension Low Risk: Systolic <120 and Diastolic <80. Hypertension Moderate Risk: Systolic 120-139 and Diastolic 80-89. Hypertension High Risk: Systolic >/= 140 and Diastolic >/= 90 - For Sedentary Lifestyle Sedentary Lifestyle Risk Guidelines: Sedentary Lifestyle Low Risk: >/= 1,500 kcal/week. Sedentary Lifestyle Moderate Risk: 700-1,499 kcal/week. Sedentary Lifestyle High Risk: < 700 kcal/week - For Depression Depression Risk Guidelines: Depression Low Risk: Not clinically depressed. Depression Moderate Risk: Mildly depressed. Depression High Risk: Clinically depressed - Family History Family History: Family History (Last Updated 02/12/19 @ 10:00 by Stevan Hurt RN) Father Coronary arteriosclerosis Grandfather Coronary arteriosclerosis Motivation - Motivation to Participate On a scale of 1 to 10, how prepared are you to commit to attending program?: 10
--- NOTE | 2019-02-12 09:52 | PCM.CR.ITP ---
General Information - General Information Admitting Diagnosis: NSTEMI, PCI W/STENT @ [facility] - Education/Goals Barriers to Learning: None Individual Counseling: Initial Assessment: Abnormal Cholesterol Levels Cardiac Rehabilitation Goals: 1. Maintain the individual as the primary focus of care. 2. To improve the patient's quality of life. 3. Identification of cardiac risk factors and provide cardiac risk factor management. 4. Enhance the psychosocial status of the patient. 5. Reconditioning enough to allow the patient to resume customary activities. 6. Control symptoms of cardiac disease Scale for measuring improvement of personal goals: Enter appropriate number in Comments. 2 = Unchanged. 3 = Slightly Better. 4 = Moderate Improvement. 5 = Met my Goal Personal Goals: Initial Assessment: Improve management of stress and emotions, Improve energy level, Participate in home exercise program, Get back to work, or to resume activities faster, Improve knowledge of cardiac disease, Improve muscle strength and endurance, Improve diet and eating habits (eat healthier), Control risk factors (learn risk factor modification), Other goal: - get better shape Exercise - Initial Assessment - Visit Date of Eval: 02/12/19 Session #:: 0 - START CR ON - Stages of Change Stages of Change:: Action - Physician Prescribed Exercise Modalities: Treadmill, Rower, Airdyne Frequency (days/week): 3x/week for 12 weeks [36 sessions] Duration (Minutes):: 30-45 Intensity: 60-80% age predicted maximum heart rate reserve METs - Progression: 0.5-1.0 MET, RPE 11-14 WEEK: 3.5 Target Heart Rate:: 112-145 - Hypertension Do any of the following apply?: No Resting Blood Pressure:: 132/76 - Intervention Home Exercise/Activity Goal:: Moderate Exercise 30 min/day x 5 days/wk - Education Goals:: Warm-up, RPE LISET Scale, S/S, Safe Exercise, Self-Monitoring - Exercise Program Goals Exercise Program Goals: Aerobic Activity >30 min Nutrition - Initial Assessment - Program Goals Nutrition Program Goals: LDL <70. Total Cholesterol <200. HDL >45. Triglycerides <150. HgbA1C <7%. BMI <25 - Visit Date of Assessment:: 02/12/19 - Stages of Change Stages of Change:: Action - Lipids Total Cholesterol (mg/dL) Goal = less than 200 mg/dL: 150 - 01/30/2019 HDL Cholesterol (mg/dL) Goal = less than 45 mg/dL: 45 - Diabetes Diabetes:: No Hgb A1C: 5.0 Insulin: No Non-Insulin Dependent?: No Do you monitor your blood sugar at home?: No - Weight Management Height: 6 ft 2 in Weight:: 221 lb Body Fat %:: 28.25 - MUSCULAR BUILD - Intervention Referral to dietitian:: No Referral to Diabetic Clinic:: No Will attend diet classes:: Yes - Education Gave educational materials for:: Healthy eating Tobacco - Initial Assessment - Program Goals Tobacco Program Goals: Complete smoking cessation. Attend education classes. Improve Knowledge Test score - Stage of Change Stages of Change:: Action - Learning Barriers Learning Barriers: Ready to Learn - Family Support Do you have family support?: Yes - Tobacco Use Tobacco Use: Non-smoker Do you use smokeless tobacco?: No - Intervention Smoking Cessation Referral:: No Individual Education/Counseling:: No Education Schedule Given:: Yes - Education Attended class for:: Treating Heart Disease, How The Heart Works, What it means to have Heart Disease, How Coronary Artery Disease is Diagnosed, Heart Procedures, What Heart Medications Do, Risk Factors & Modifications, Living an Active Life, Nutrition, Emotions & Heart Disease, Stress Management & Relaxation, Sleep Disorders & Heart Disease Psychosocial - Initial Assess - Target Goals Target Goals: Assess presence or absence of depression. Using a valid screening tool, maximizes coping skills. Positive support system - Stages of Change Stages of Change:: Action - Psychosocial Test Tool Used:: HANDS Depression Questionnaire - Intervention PS - Interventions: Yes Attend Stress Management Classes, No Referral to Mental Health, No Referral to [facility] Case Management, No Referral to Physician, No Uses Stress Management Skills - Education Gave educational materials for:: Coping techniques, Signs & symptoms of depression, Stress management, Relaxation techniques - Patient/Program Goal Preventative Medication(s):: Aspirin, ELAINA inhibitor, Clopidogrel, Beta april, Statin/lipid - Assistive Devices Assistive Devices:: None Fall Risk Assessed:: Yes Patient Health Questionnaire Initial Assessment 1. Little interest or pleasure in doing things: Nearly every day 2. Feeling down, depressed, or hopeless: More than half the days 3. Trouble falling or staying asleep, or sleeping too much: Nearly every day 4. Feeling tired or having little energy: Nearly every day 5. Poor appetite or overeating: Several days 6. Feeling bad about yourself -- or that you are a failure or have let yourself or your family down: Several days - FEEL BAD ABOUT MYSELF; NOT TAHT i HAVE LET MYSELF OR FAMILY DOWN. HARD TO EXPLAIN. 7. Trouble concentrating on things, such as reading the newspaper or watching television: Several days 8. Moving or speaking so slowly that other people could have noticed. Or the opposite - being so fidgety or restless that you have been moving around a lot more than usual: Several days 9. Thoughts that you would be better off , or of hurting yourself in some way: Several days How difficult have these problems made it for you to do your work, take care of things at home, or get along with other people?: Somewhat difficult - Patient could benefit from Counseling through Behavioral Health; phone number provided. Total Score: 16 ROGER-Q SV Test - Statements CAD is a disease of the arteries in the heart: False Examples of risk factors for heart disease: True Angina is chest pain or discomfort: True The benefits of resistance training include: True Eating more meat and dairy products: False Anti-platelet medications such as aspirin are important: True The only effective way to manage stress: False An exercise warm-up slowly increases heart rate: I Don't Know Prepared, processed foods usually have high sodium: True Depression is common after a heart attack: I Don't Know The statin medications lower cholesterol: True To control blood pressure, lower the amount of sodium: True If someone gets chest discomfort during walking: False Transfats are partially hydrogenated vegetable oils: True Sleep apnea that is not treated increases the risk: I Don't Know To control cholesterol, one should become a vegetarian: I Don't Know Someone knows if he/she is exercising at the right level: True Diabetes cannot be prevented with exercise & health eating: I Don't Know Stress is a large risk for heart attack: True A diet that can help lower blood pressure is rich in: True - Total Score Total Correct Responses: 15 Self-Efficacy Initial Assessment We would like to know how confident you are in doing certain activities. Please select your confidence level for:: Select your confidence level for the following using the scale 1-10 where 1 is not at all confident and 10 is totally confident. Your score is the average of all 6 responses. Fatigue: How confident are you that you can keep the fatigue caused by your disease from interfering with the things you want to do? Select Number: 6 Physical Discomfort or Pain: How confident are you that you can keep the physical discomfort or pain of your disease from interfering with the things you want to do? Select Number: 7 Emotional Distress: How confident are you that you can keep the emotional distress caused by your disease from interfering with the things you want to do? Select Number: 6 Other Symptoms or Health Problems: How confident are you that you can keep other symptoms or health problems from interfering with the things you want to do? Select Number: 6 Different Tasks and Activities: How confident are you that you can do the different tasks and activities needed to manage your health condition so as to reduce your need to see a doctor? Select Number: 9 Medication: How confident are you that you can do things other than just taking medication to reduce how much your illness affects your everyday life? Select Number: 8 Total Score:: 7 Nutrition Survey - Nutrition Survey Instructions Scoring Instructions: Scoring is as follows: Yes = 1 points. No = 0 point. Patient score that is >/=12 is considered to be at potential nutritional risk and could benefit from a referral to a registered dietitian. - Nutrition Survey Initial Have you lost >10 lbs over the past 2 months without trying?: No Are you following a special diet at home for diabetes, low fat, or low salt?: No Are you interested in meeting with a dietitian for help understanding your diet?: Yes Do you eat less than 3 meals a day?: No Do you eat fatty meats (ewing, sausage, ribs, etc), fried foods, desserts, large amounts of salad dressings, margarine, butter, or cheese most days?: No Do you have food allergies? [Enter types in comment field]: No Do you eat in restaurants more than 3 times a week?: No Do you season food with salt, seasoning salt, or garlic salt?: Yes Do you used canned, boxed, frozen meals, or soups, seasoning packets?: Yes Total Score:: 3
[2019-02-12 10:14] VITALS: BP 120/80; BP 92/66; PULSE 60; O2SAT 97; BMI 28.3
[2019-02-12 10:56] VITALS: BP 132/76
== END ==
PROVIDERS: Family Provider Internal Medicine; PCP Internal Medicine; Referring Provider Internal Medicine; Visit Provider Internal Medicine
DX: Z95.5 Presence of coronary angioplasty implant and graft (principal); I21.4 Non-ST elevation (NSTEMI) myocardial infarction

== ENCOUNTER → 2019-02-13 10:05 | Outpatient (CLI) | payer OTHER, SELFPAY ==
[2019-01-27 17:16] VITALS: BMI 28.2
[2019-02-12 10:14] VITALS: BMI 28.3
--- NOTE | 2019-02-13 10:19 | CDU_ITS ---
Reason For Study: dizziness Rt. Velocities/BP Lt. Velocities/BP Prox CCA 128.2/22.6 cm/sec. Prox CCA 116.2/23.0 cm/sec. Mid CCA 97.3/19.0 cm/sec. Mid CCA 116.2/26.7 cm/sec. Dist CCA 86.9/15.1 cm/sec. Dist CCA 114.3/24.8 cm/sec. Prox ICA 75.1/28.2 cm/sec. Prox ICA 82.2/22.0 cm/sec. Mid ICA 67.3/29.5 cm/sec. Mid ICA 58.8/24.4 cm/sec. Dist ICA 69.9/32.1 cm/sec. Dist ICA 57.0/22.3 cm/sec. Rt. ICA/CCA = 75.1/97.3=0.8. Lt. ICA/CCA = 82.2/116.2=0.7. Prox ECA 79.0/9.9 cm/sec. Prox ECA 123.5/17.5 cm/sec. Rt. Vert. 40.3/9.0 cm/sec. Lt. Vert. 43.8/12.1 cm/sec. Right Extracranial There is intimal thickening but no significant atherosclerotic plaque noted in the right common carotid artery. There is no significant atherosclerotic plaque noted in the right internal carotid artery. There is intimal thickening but no significant atherosclerotic plaque noted in the right external carotid artery. Antegrade flow is noted in the right vertebral artery. Left Extracranial There is intimal thickening but no significant atherosclerotic plaque noted in the left common carotid artery. There is homogeneous, smooth atherosclerotic plaque noted in the left internal carotid artery. There is no significant atherosclerotic plaque noted in the left external carotid artery. Antegrade flow is noted in the left vertebral artery. Procedure Carotid Duplex [id number]. The exam was diagnostic. Exam performed in department. Interpretation Summary No significant atherosclerotic plaque or stenosis noted in the right internal carotid artery. Mild (<50%) stenosis left extracranial internal carotid. Flow within the vertebral arteries is antegrade bilaterally. Ordering Physician: Lavonne Schultz Referring Physician: Lavonne Schultz Performed By: Regine Lira, MADI, RVT
== END ==
PROVIDERS: Family Provider Internal Medicine; PCP Internal Medicine; Referring Provider Internal Medicine; Visit Provider Internal Medicine
DX: R42 Dizziness and giddiness (principal)
CPT/HCPCS: 93880

== ENCOUNTER 2019-03-04 13:02 | Outpatient (RCR) | payer OTHER, SELFPAY ==
[2019-02-12 10:14] VITALS: BMI 28.3
== END 2019-03-04 23:59 | disposition home or self-care (01) ==
LOC: NS 13:02
PROVIDERS: Family Provider Internal Medicine; PCP Internal Medicine; Visit Provider Internal Medicine
DX: Z71.3 Dietary counseling and surveillance (principal); E66.9 Obesity, unspecified; R73.01 Impaired fasting glucose
CPT/HCPCS: 97802

== ENCOUNTER 2019-03-16 08:00 | Outpatient (RCR) | payer OTHER, SELFPAY ==
[2019-02-12 10:14] VITALS: BMI 28.3
--- NOTE | 2019-03-13 06:42 | CR.ITP_ITS ---
Exercise - 30-day Assessment - Visit Date of Eval: 03/13/19 Session #:: 11 - MISSED A FEW SESSIONA DUE TO 4-H FAIR - Stages of Change Stages of Change:: Action - Physician Prescribed Exercise Modalities: Treadmill, Rower, Airdyne Frequency (days/week): 3 Duration (Minutes):: 30-45 Intensity: 60-80% age predicted maximum heart rate reserve METs - Progression: 0.5-1.0 MET, RPE 11-14 WEEK: 5.1 Target Heart Rate:: 112-145 W/ MAX HR 108 - Hypertension Resting Blood Pressure:: 100/82 Peak Exercise Blood Pressure:: 112/62 Medication Changes:: No - Intervention Home Exercise/Activity Goal:: Moderate Exercise 30 min/day x 5 days/wk - 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 Total Cholesterol <200. HDL >45. Triglycerides <150. HgbA1C <7%. BMI <25 - Diabetes Do you monitor your blood sugar at home?: No Nutrition - 30-Day Assessment - Program Goals Nutrition Program Goals: LDL <70. Total Cholesterol <200. HDL >45. Triglycerides <150. HgbA1C <7%. BMI <25 - Visit Date of Eval: 03/13/19 - Stages of Change Stages of Change:: Action - Lipids Has the patient seen the dietitian?: Yes - Diabetes Diabetes:: No Insulin: No Non-Insulin Dependent?: No - Weight Management Weight:: 221 lb - Intervention Referral to dietitian:: No Referral to Diabetic Clinic:: No Will attend diet classes:: Yes - Education Attended class for:: Healthy eating Tobacco - Initial Assessment - Program Goals Tobacco Program Goals: Complete smoking cessation. Attend education classes. Improve Knowledge Test score - Learning Barriers Learning Barriers: Ready to Learn Tobacco - 30-Day Assessment - Program Goals Tobacco Program Goals: Complete smoking cessation. Attend education classes. Improve Knowledge Test score - Stage of Change Stages of Change:: Action - Learning Barriers Learning Barriers: Participates in education, Change in behavior - Family Support Do you have family support?: Yes - Tobacco Use Tobacco Use: Non-smoker Do you use smokeless tobacco?: No - Intervention Smoking Cessation Referral:: No Individual Education/Counseling:: No Education Schedule Given:: Yes - Education Attended class for:: Treating Heart Disease, How The Heart Works, What it means to have Heart Disease, How Coronary Artery Disease is Diagnosed, Heart Procedures, What Heart Medications Do, Risk Factors & Modifications, Living an Active Life, Nutrition, Emotions & Heart Disease, Stress Management & Relaxation, Sleep Disorders & Heart Disease Psychosocial - Initial Assess - Target Goals Target Goals: Assess presence or absence of depression. Using a valid screening tool, maximizes coping skills. Positive support system - Psychosocial Test Tool Used:: HANDS Depression Questionnaire - Assistive Devices Fall Risk Assessed:: Yes Psychosocial - 30-Day Assess - Target Goals Target Goals: Assess presence or absence of depression. Using a valid screening tool, maximizes coping skills. Positive support system - Stages of Change Stages of Change:: Action - Psychosocial Test Tool Used:: HANDS Depression Questionnaire - Intervention PS - Interventions: Yes Attend Stress Management Classes, No Referral to Mental Health, No Referral to [facility] Case Management, No Referral to Physician, No Uses Stress Management Skills - Education Attended classes for:: Coping techniques, Signs & symptoms of depression, Stress management, Relaxation techniques - Patient/Program Goal Preventative Medication(s):: Aspirin - PATINET IS COMPLIANT WITH MEDICATIONS, ELAINA inhibitor, Clopidogrel, Beta april, Statin/lipid - Assistive Devices Assistive Devices:: None Fall Risk Assessed:: Yes Patient Health Questionnaire 30-Day Re-eval Assessment 1. Little interest or pleasure in doing things: More than half the days 2. Feeling down, depressed, or hopeless: Several days 3. Trouble falling or staying asleep, or sleeping too much: More than half the days 4. Feeling tired or having little energy: More than half the days 5. Poor appetite or overeating: Several days 6. Feeling bad about yourself -- or that you are a failure or have let yourself or your family down: Several days 7. Trouble concentrating on things, such as reading the newspaper or watching television: Not at all 8. Moving or speaking so slowly that other people could have noticed. Or the opposite - being so fidgety or restless that you have been moving around a lot more than usual: Not at all 9. Thoughts that you would be better off , or of hurting yourself in some way: Not at all How difficult have these problems made it for you to do your work, take care of things at home, or get along with other people?: Somewhat difficult Total Score: 9 Self-Efficacy 30-Day Re-eval Assessment We would like to know how confident you are in doing certain activities. Please select your confidence level for:: Select your confidence level for the following using the scale 1-10 where 1 is not at all confident and 10 is totally confident. Your score is the average of all 6 responses. Fatigue: How confident are you that you can keep the fatigue caused by your disease from interfering with the things you want to do? Select Number: 10 Physical Discomfort or Pain: How confident are you that you can keep the physical discomfort or pain of your disease from interfering with the things you want to do? Select Number: 10 Emotional Distress: How confident are you that you can keep the emotional distress caused by your disease from interfering with the things you want to do? Select Number: 10 Other Symptoms or Health Problems: How confident are you that you can keep other symptoms or health problems from interfering with the things you want to do? Select Number: 10 Different Tasks and Activities: How confident are you that you can do the different tasks and activities needed to manage your health condition so as to reduce your need to see a doctor? Select Number: 10 Medication: How confident are you that you can do things other than just taking medication to reduce how much your illness affects your everyday life? Select Number: 10 Total Score:: 10
[2019-03-13 06:48] VITALS: BP 100/82; BP 112/62
== END 2019-03-16 23:59 ==
LOC: CR 08:00
PROVIDERS: Family Provider Internal Medicine; PCP Internal Medicine; Referring Provider Internal Medicine; Visit Provider Internal Medicine
DX: I21.4 Non-ST elevation (NSTEMI) myocardial infarction (principal); Z95.5 Presence of coronary angioplasty implant and graft
CPT/HCPCS: 93798

== ENCOUNTER 2019-04-15 08:00 | Outpatient (RCR) | payer OTHER, SELFPAY ==
[2019-02-12 10:14] VITALS: BMI 28.3
[2019-03-17 00:15] VITALS: BP 100/82; BP 112/62
--- NOTE | 2019-04-10 08:39 | CR.ITP_ITS ---
Exercise - 60-Day Assessment - Visit Date of Eval: 04/10/19 Session #:: 24 - balta has only missed 3 sessions. - Stages of Change Stages of Change:: Action - Physician Prescribed Exercise Modalities: Treadmill, Rower, NuStep Frequency (days/week): 3 Duration (Minutes):: 30-45 Intensity: 60-80% age predicted maximum heart rate reserve METs - Progression: 0.5-1.0 MET, RPE 11-14 WEEK: 7.5 increased from 5.1 over recent 30-days Target Heart Rate:: 112-145 - Hypertension Resting Blood Pressure:: 118/64 Peak Exercise Blood Pressure:: 138/84 Medication Changes:: No - Intervention Home Exercise/Activity Goal:: Moderate Exercise 30 min/day x 5 days/wk - Education Goals:: Warm-up, RPE LISET Scale, S/S, Safe Exercise, Self-Monitoring - Exercise Program Goals Exercise Program Goals: Aerobic Activity >30 min Nutrition - Initial Assessment - Program Goals Nutrition Program Goals: LDL <70. Total Cholesterol <200. HDL >45. Triglycerides <150. HgbA1C <7%. BMI <25 - Diabetes Do you monitor your blood sugar at home?: No Nutrition - 60-Day Assessment - Program Goals Nutrition Program Goals: LDL <70. Total Cholesterol <200. HDL >45. Triglycerides <150. HgbA1C <7%. BMI <25 - Visit Date of Eval: 04/10/19 - Stages of Change Stages of Change:: Action - Lipids Has the patient seen the dietitian?: No - Diabetes Diabetes:: No Insulin: No Non-Insulin Dependent?: No - Weight Management Weight:: 215 lb 8 oz - down from 221.0 - Intervention Referral to dietitian:: No Referral to Diabetic Clinic:: No Will attend diet classes:: Yes - Education Attended class for:: Healthy eating Tobacco - Initial Assessment - Program Goals Tobacco Program Goals: Complete smoking cessation. Attend education classes. Improve Knowledge Test score - Learning Barriers Learning Barriers: Ready to Learn Tobacco - 60-Day Assessment - Program Goals Tobacco Program Goals: Complete smoking cessation. Attend education classes. Improve Knowledge Test score - Stage of Change Stages of Change:: Action - Learning Barriers Learning Barriers: Participates in education - Family Support Do you have family support?: Yes - Tobacco Use Tobacco Use: Non-smoker Do you use smokeless tobacco?: No - Intervention Smoking Cessation Referral:: No Individual Education/Counseling:: No Education Schedule Given:: Yes - Education Attended class for:: Heart Procedures, What Heart Medications Do, Risk Factors & Modifications, Living an Active Life, Nutrition, Emotions & Heart Disease, Stress Management & Relaxation, Sleep Disorders & Heart Disease Psychosocial - Initial Assess - Target Goals Target Goals: Assess presence or absence of depression. Using a valid screening tool, maximizes coping skills. Positive support system - Psychosocial Test Tool Used:: HANDS Depression Questionnaire - Assistive Devices Fall Risk Assessed:: Yes Psychosocial - 60-Day Assess - Target Goals Target Goals: Assess presence or absence of depression. Using a valid screening tool, maximizes coping skills. Positive support system - Stages of Change Stages of Change:: Action - Psychosocial Test Tool Used:: HANDS Depression Questionnaire - Intervention PS - Interventions: Yes Attend Stress Management Classes, Yes Uses Stress Management Skills, No Referral to Mental Health, No Referral to [facility] Case Management, No Referral to Physician - Education Attended classes for:: Coping techniques, Signs & symptoms of depression, Stress management, Relaxation techniques - Patient/Program Goal Preventative Medication(s):: Aspirin - patient is compliant with his medications., ELAINA inhibitor, Clopidogrel, Beta april, Statin/lipid - Assistive Devices Assistive Devices:: None Fall Risk Assessed:: Yes Patient Health Questionnaire 60-Day Re-eval Assessment 1. Little interest or pleasure in doing things: Not at all 2. Feeling down, depressed, or hopeless: Not at all 3. Trouble falling or staying asleep, or sleeping too much: Not at all 4. Feeling tired or having little energy: Not at all 5. Poor appetite or overeating: Not at all 6. Feeling bad about yourself -- or that you are a failure or have let yourself or your family down: Not at all 7. Trouble concentrating on things, such as reading the newspaper or watching television: Not at all 8. Moving or speaking so slowly that other people could have noticed. Or the opposite - being so fidgety or restless that you have been moving around a lot more than usual: Not at all 9. Thoughts that you would be better off , or of hurting yourself in some way: Not at all Total Score: 0 Self-Efficacy 60-Day Re-eval Assessment We would like to know how confident you are in doing certain activities. Please select your confidence level for:: Select your confidence level for the following using the scale 1-10 where 1 is not at all confident and 10 is totally confident. Your score is the average of all 6 responses. Fatigue: How confident are you that you can keep the fatigue caused by your disease from interfering with the things you want to do? Select Number: 10 Physical Discomfort or Pain: How confident are you that you can keep the physical discomfort or pain of your disease from interfering with the things you want to do? Select Number: 10 Emotional Distress: How confident are you that you can keep the emotional distress caused by your disease from interfering with the things you want to do? Select Number: 10 Other Symptoms or Health Problems: How confident are you that you can keep other symptoms or health problems from interfering with the things you want to do? Select Number: 10 Different Tasks and Activities: How confident are you that you can do the different tasks and activities needed to manage your health condition so as to reduce your need to see a doctor? Select Number: 10 Medication: How confident are you that you can do things other than just taking medication to reduce how much your illness affects your everyday life? Select Number: 10 Total Score:: 10
[2019-04-10 08:43] VITALS: BP 118/64; BP 138/84
== END 2019-04-16 23:59 ==
LOC: CR 08:00
PROVIDERS: Family Provider Internal Medicine; PCP Internal Medicine; Referring Provider Internal Medicine; Visit Provider Internal Medicine
DX: I21.4 Non-ST elevation (NSTEMI) myocardial infarction (principal); Z95.5 Presence of coronary angioplasty implant and graft
CPT/HCPCS: 93798

== ENCOUNTER 2019-05-08 08:00 | Outpatient (RCR) | payer OTHER, SELFPAY ==
[2019-02-12 10:14] VITALS: BMI 28.3
[2019-04-17 00:21] VITALS: BP 118/64; BP 138/84
--- NOTE | 2019-05-13 13:30 | CR.ITP_ITS ---
Exercise - 90-Day Assessment - Visit Date of Eval: 05/13/19 Session #:: 32 - HAS MISSED THE LAST TWO SESSION DUE TO ILLNESS - Stages of Change Stages of Change:: Action - Physician Prescribed Exercise Modalities: Treadmill, Rower, Airdyne Frequency (days/week): 3 Duration (Minutes):: 30-45 Intensity: 60-80% age predicted maximum heart rate reserve METs - Progression: 0.5-1.0 MET, RPE 11-14 WEEK: 7.5 METs W/ RPE 12-16 Target Heart Rate:: 112-145 W/MAX HR 142 - Hypertension Resting Blood Pressure:: 116/70 Peak Exercise Blood Pressure:: 140/88 Medication Changes:: No - Intervention Home Exercise/Activity Goal:: Moderate Exercise 30 min/day x 5 days/wk - Education Goals:: Warm-up, RPE LISET Scale, S/S, Safe Exercise, Self-Monitoring - Exercise Program Goals Exercise Program Goals: Aerobic Activity >30 min Nutrition - Initial Assessment - Program Goals Nutrition Program Goals: LDL <70. Total Cholesterol <200. HDL >45. Triglycerides <150. HgbA1C <7%. BMI <25 - Diabetes Do you monitor your blood sugar at home?: No Nutrition - 90-Day Assessment - Program Goals Nutrition Program Goals: LDL <70. Total Cholesterol <200. HDL >45. Triglycerides <150. HgbA1C <7%. BMI <25 - Visit Date of Eval: 05/13/19 - Stages of Change Stages of Change:: Action - Lipids Has the patient seen the dietitian?: No - Diabetes Diabetes:: No Insulin: No Non-Insulin Dependent?: No - Weight Management Weight:: 217 lb - Intervention Referral to dietitian:: No Referral to Diabetic Clinic:: No Will attend diet classes:: Yes - Education Attended class for:: Healthy eating Tobacco - Initial Assessment - Program Goals Tobacco Program Goals: Complete smoking cessation. Attend education classes. Improve Knowledge Test score - Learning Barriers Learning Barriers: Ready to Learn Tobacco - 90-Day Assessment - Program Goals Tobacco Program Goals: Complete smoking cessation. Attend education classes. Improve Knowledge Test score - Stage of Change Stages of Change:: Action - Learning Barriers Learning Barriers: Participates in education, Change in behavior - Family Support Do you have family support?: Yes - Tobacco Use Tobacco Use: Non-smoker Do you use smokeless tobacco?: No - Intervention Smoking Cessation Referral:: No Individual Education/Counseling:: No Education Schedule Given:: Yes - Education Attended class for:: Treating Heart Disease, How The Heart Works, What it means to have Heart Disease, How Coronary Artery Disease is Diagnosed, Heart Procedures, What Heart Medications Do, Risk Factors & Modifications, Living an Active Life, Nutrition, Emotions & Heart Disease, Stress Management & Relaxation, Sleep Disorders & Heart Disease Psychosocial - Initial Assess - Target Goals Target Goals: Assess presence or absence of depression. Using a valid screening tool, maximizes coping skills. Positive support system - Psychosocial Test Tool Used:: HANDS Depression Questionnaire - Assistive Devices Fall Risk Assessed:: Yes Psychosocial - 90-Day Assess - Target Goals Target Goals: Assess presence or absence of depression. Using a valid screening tool, maximizes coping skills. Positive support system - Stages of Change Stages of Change:: Action - Psychosocial Test Tool Used:: HANDS Depression Questionnaire Test Scores: Mood Scale Test - Intervention PS - Interventions: Yes Attend Stress Management Classes, Yes Uses Stress Management Skills, No Referral to Mental Health, No Referral to [facility] Case Management, No Referral to Physician - Education Attended classes for:: Coping techniques, Signs & symptoms of depression, Stress management, Relaxation techniques - Patient/Program Goal Preventative Medication(s):: Aspirin, ELAINA inhibitor, Clopidogrel, Beta april, Statin/lipid - PATEINT REPORTS TAKING Patient Health Questionnaire 90-Day Re-eval Assessment 1. Little interest or pleasure in doing things: Not at all 2. Feeling down, depressed, or hopeless: Not at all 3. Trouble falling or staying asleep, or sleeping too much: Not at all 4. Feeling tired or having little energy: Not at all 5. Poor appetite or overeating: Not at all 6. Feeling bad about yourself -- or that you are a failure or have let yourself or your family down: Not at all 7. Trouble concentrating on things, such as reading the newspaper or watching television: Not at all 8. Moving or speaking so slowly that other people could have noticed. Or the opposite - being so fidgety or restless that you have been moving around a lot more than usual: Not at all 9. Thoughts that you would be better off , or of hurting yourself in some way: Not at all Total Score: 0 Self-Efficacy 90-Day Re-eval Assessment We would like to know how confident you are in doing certain activities. Please select your confidence level for:: Select your confidence level for the following using the scale 1-10 where 1 is not at all confident and 10 is totally confident. Your score is the average of all 6 responses. Fatigue: How confident are you that you can keep the fatigue caused by your disease from interfering with the things you want to do? Select Number: 10 Physical Discomfort or Pain: How confident are you that you can keep the physical discomfort or pain of your disease from interfering with the things you want to do? Select Number: 10 Emotional Distress: How confident are you that you can keep the emotional distress caused by your disease from interfering with the things you want to do? Select Number: 10 Other Symptoms or Health Problems: How confident are you that you can keep other symptoms or health problems from interfering with the things you want to do? Select Number: 10 Different Tasks and Activities: How confident are you that you can do the different tasks and activities needed to manage your health condition so as to reduce your need to see a doctor? Select Number: 10 Medication: How confident are you that you can do things other than just taking medication to reduce how much your illness affects your everyday life? Select Number: 10 Total Score:: 10
[2019-05-13 13:48] VITALS: BP 116/70; BP 140/88
== END 2019-05-16 23:59 ==
LOC: CR 08:00
PROVIDERS: Family Provider Internal Medicine; PCP Internal Medicine; Referring Provider Internal Medicine; Visit Provider Internal Medicine
DX: I21.4 Non-ST elevation (NSTEMI) myocardial infarction (principal); Z95.5 Presence of coronary angioplasty implant and graft
CPT/HCPCS: 93798

== ENCOUNTER 2019-05-18 07:51 | Outpatient (RCR) | payer OTHER, SELFPAY ==
[2019-02-12 10:14] VITALS: BMI 28.3
[2019-05-17 00:19] VITALS: BP 116/70; BP 140/88
== END 2019-06-16 23:59 ==
LOC: CR 07:51
PROVIDERS: Family Provider Internal Medicine; PCP Internal Medicine; Referring Provider Internal Medicine; Visit Provider Internal Medicine
DX: I21.4 Non-ST elevation (NSTEMI) myocardial infarction (principal); Z95.5 Presence of coronary angioplasty implant and graft
CPT/HCPCS: 93798

== ENCOUNTER → 2019-06-24 13:59 | Outpatient (CLI) | payer OTHER, SELFPAY ==
[2019-02-12 10:14] VITALS: BMI 28.3
--- NOTE | 2019-06-24 14:08 | RAD_ITS ---
STUDY: X-RAY CHEST REASON FOR EXAM: Male, 49 years old. Cough since 2018, no improvement TECHNIQUE: PA and lateral views of the chest. COMPARISON: Comparison is made with prior study dated January 27, 2019. FINDINGS: Hyperinflation. Scattered calcified granulomas. There is no demonstrated pleural abnormality. Normal size heart. Normal mediastinum and kenan. Normal visualized pulmonary arteries. Normal visualized aortic arch and descending thoracic aorta. Normal visualized thoracic spine. Normal visualized ribs, clavicles, and shoulders. There is no demonstrated abnormality of the visualized soft tissue structures of the upper abdomen. RAD/Chest PA and Lateral IMPRESSION: Hyperinflation. The lungs are clear. Electronically Signed: Dre Luna, at 14:41 EST , Service support ,
== END ==
PROVIDERS: Family Provider Internal Medicine; PCP Internal Medicine; Referring Provider Internal Medicine; Visit Provider Internal Medicine
DX: R05 Cough (principal)
CPT/HCPCS: 71046

== ENCOUNTER → 2019-07-29 10:04 | Outpatient (CLI) | payer OTHER, SELFPAY ==
[2019-02-12 10:14] VITALS: BMI 28.3
--- NOTE | 2019-07-29 10:10 | RAD_ITS ---
STUDY: X-RAY - LEFT TIBIA AND FIBULA REASON FOR EXAM: Male, 49 years old. PAIN PROXIMAL TIB/FIB LATERAL AREA. NO INJURY TECHNIQUE: 2 view(s) of the tibia and fibula were obtained. COMPARISON: None. FINDINGS: Normal visualized tibia. There is a 3.3 cm x 1.5 cm bony outgrowth along the medial aspect of the proximal metaphysis/diaphysis of the fibula. This is suggestive of an osteochondroma. The soft tissue structures are unremarkable. RAD/Tibia & Fibula 2 Views IMPRESSION: Findings suggestive of a 3.3 cm x 1.5 cm osteochondroma at the junction of the proximal metaphysis and diaphysis of the fibula. Electronically Signed: Dre Luna, at 10:38 EST , Service support ,
== END ==
PROVIDERS: PCP Internal Medicine; Referring Provider Internal Medicine; Visit Provider Internal Medicine
DX: M79.605 Pain in left leg (principal)
CPT/HCPCS: 73590

== ENCOUNTER → 2019-08-14 07:16 | Outpatient (CLI) | payer OTHER, SELFPAY ==
[2019-02-12 10:14] VITALS: BMI 28.3
--- NOTE | 2019-08-14 07:25 | MRI_ITS ---
PROCEDURE: MRI LOWER EXTREMITY LEFT TIBIA/FIBULA REASON FOR EXAM: Male, 49 years old. LEFT superior tib/fib pain, burning and swelling. Abnormal xray, osteochondroma TECHNIQUE: Standardized fat and water weighted pulse sequences were obtained in all 3 orthogonal planes. COMPARISON: None. FINDINGS: Examination the tibia is normal without evidence of the periosteal edema, fracture, or stress reaction. Examination of the fibula demonstrates a 1 x 3 cm exophytic mass of the medial cortex of the proximal shaft of the fibula which is of marrow intensity and without marrow edema consistent with an osteochondroma (exostosis) (. A cartilage cap measuring 3 mm thick is noted. No MR evidence of malignant transformation. Normal anterior, lateral, and posterior calf compartments, with normal muscles, crural fascia and intermuscular septa. Normal subcutis adipose space, without subcutis adipose space edema. There is no solid, cystic or lipomatous mass lesion of the subcutis adipose space. MRI/Lower Ext/No Jt/w/o IMPRESSION: Normal unenhanced MRI of the calf. 1 x 3 cm osteochondroma (exostosis) of the medial cortex of the proximal shaft of the fibula without evidence of malignant transformation.. Electronically Signed: Zaheer Jiang MD at 11:59 EST Tel , Service support ,
== END ==
PROVIDERS: PCP Internal Medicine; Referring Provider Internal Medicine; Visit Provider Internal Medicine
DX: M79.605 Pain in left leg (principal)
CPT/HCPCS: 73718

== ENCOUNTER → 2019-08-20 14:57 | Outpatient (REF) | payer OTHER, SELFPAY ==
[2019-08-20 14:24] VITALS: BMI 28.3
== END ==
LOC: HPRAD 14:57
PROVIDERS: PCP Internal Medicine; Referring Provider Chiropractor; Visit Provider Chiropractor
DX: M99.01 Segmental and somatic dysfunction of cervical region (principal); M99.02 Segmental and somatic dysfunction of thoracic region
CPT/HCPCS: 72040

== ENCOUNTER → 2020-01-01 | Outpatient (CLI) | payer OTHER, SELFPAY ==
[2019-09-03 11:16] VITALS: BMI 28.3
[2020-01-01 15:15] LABS: Absolute Lymphocyte Count 1.45 X10^3/uL (0.83-4.51); Absolute Neutrophil Count 4.9 X10^3/uL (2.0-7.7); Basophil# 0.03 X10^3/uL; Basophil% 0.4 % (0-1); Eosinophil# 0.07 X10^3/uL; Hematocrit 44.3 % (40-54); Hemoglobin 15.4 g/dL (13.0-16.5); Lymphocyte # 1.45 X10^3/ul (4.0); Lymphocyte % 20.2 % (19-41); Mean Corp Hgb Conc 34.8 g/dL (32-36); Mean Corpuscular Hgb 32.4 pg (27.0-32.0); Mean Corpuscular Volume 93.1 fL (80-94); Mean Platelet Vol. 11.4 fl (6.2-12.0); Monocyte# 0.69 X10^3/uL; Monocyte% 9.6 % (0-10); NRBC Flagged by Analyzer 0 % (0-5); Neutrophil # 4.93 X10^3/uL (2.7-7.7); Neutrophil % 68.7 % (47-70); Platelet Count 221 K/mm3 (150-450); RBC Distribution Width CV 12.2 % (11.6-14.6); RBC Distribution Width SD 41.5 fl (35.1-43.9); Red Blood Count 4.76 M/mm3 (4.6-6.2); White Blood Count 7.2 K/mm3 (4.4-11.0)
[2020-01-01 15:40] LABS: ALB/GLOB Ratio 1.5 RATIO (0.9-2.4); AST(SGOT) 34 U/L (15-37); Alanine Aminotransfer ALT/SGPT 60 U/L (16-61); Albumin, Serum 4.1 g/dL (3.2-5.0); Alkaline Phosphatase 51 U/L (45-117); Anion Gap 6 (5-15); BUN 19 mg/dL (7-18); BUN/Creat Ratio 18.6 RATIO (10-20); Calcium,Total 9.2 mg/dL (8.5-10.1); Chloride 110 mmol/L (98-107); Creatinine, Serum 1.02 mg/dL (0.70-1.30); EST Glomerular Filtration Rate 82 mL/min (>60); Est Glom Filt Rate - Afr Amer 99 mL/min (>60); Globulin 2.8 g/dL (2.2-4.2); Glucose 101 mg/dL (74-106); Potassium 3.5 mmol/L (3.5-5.1); Protein, Total 6.9 g/dL (6.4-8.2); Sodium Level 142 mmol/L (136-145)
== END | disposition home or self-care (01) ==
LOC: LABSPEC 14:56
PROVIDERS: PCP Internal Medicine; Referring Provider Internal Medicine; Visit Provider Internal Medicine
DX: I25.10 Atherosclerotic heart disease of native coronary artery without angina pectoris (principal)
CPT/HCPCS: 80053; 84443; 84484; 85025

== ENCOUNTER → 2020-02-02 06:46 | Outpatient (CLI) | payer OTHER, SELFPAY ==
[2019-09-03 11:16] VITALS: BMI 28.3
--- NOTE | 2020-02-02 09:55 | STRESSREP ---
Stress Test Report Date: 02/02/2020 Procedure: Exercise tolerance test/imaging study Indications: CAD Consent: Per the patient Procedure: The patient exercised on a Emmanuel protocol for 10 minutes achieving a peak heart rate of 162 bpm (95 % predicted maximal heart rate) with a peak blood pressure 154/72 mmHg and a peak MET capacity of 11.6 METs. The baseline ECG demonstrated sinus rhythm. The peak exercise ECG demonstrated sinus tachycardia with no significant ST-T changes. EKG during recovery revealed no significant ischemic changes [There were no cardiac dysrhythmias pretest, during exercise, or recovery]. The functional capacity was considered excellent for age. There was [no complaint of chest discomfort during exercise or recovery]. The examination was discontinued secondary to achieving target heart rate. Impression: 1. Technically adequate (percent predicted maximal heart rate greater than 85%) exercise tolerance test 2. Stress test is negative for exercise-induced EKG changes of ischemia 3. The test test is negative for exercise-induced chest pain 4. Functional capacity is excellent for age 5. Nuclear images pending Myocardial perfusion imaging study: Technique: The patient was injected with [14.4] mCi of technetium 99m Cardiolite and subsequently rest SPECT Cardiolite nuclear imaging was obtained in the horizontal long, vertical long, and short axis views. The patient exercised on a Emmanuel protocol. Please see above for details. The patient was injected with 44.1 mCi of technetium 99m Cardiolite and subsequently stress SPECT Cardiolite nuclear imaging was obtained in the horizontal long, vertical long, and short axis views. A gated Cardiolite study at peak stress was obtained. Interpretation: Rest and stress SPECT Cardiolite nuclear imaging status post realignment, normalization, and attenuation correction, demonstrates normal myocardial radioisotope uptake at rest. On the stress images there is mildly decreased radioisotope uptake in the inferior wall. The gated Cardiolite study demonstrates no significant regional wall motion abnormalities. The reported LVEF is 58 %. Impression: 1. There is evidence of mild inferior ischemia. 2. The gated Cardiolite study reports an LVEF of 58 %. This note was generated with [employer] software. It may contain incorrect words, spelling, and punctuation that were not noted in checking the note before signing.
== END ==
PROVIDERS: PCP Internal Medicine; Referring Provider Internal Medicine; Visit Provider Internal Medicine
DX: I25.10 Atherosclerotic heart disease of native coronary artery without angina pectoris (principal)
CPT/HCPCS: 78452; 93017; A9500; A4216

== ENCOUNTER → 2020-03-14 11:07 | Outpatient (CLI) | payer OTHER, SELFPAY ==
[2019-09-03 11:16] VITALS: BMI 28.3
== END ==
PROVIDERS: PCP Internal Medicine; Referring Provider Internal Medicine; Visit Provider Internal Medicine
DX: M25.531 Pain in right wrist (principal); Z98.61 Coronary angioplasty status
CPT/HCPCS: 93931

== ENCOUNTER → 2020-04-18 06:26 | Outpatient (CLI) | payer OTHER, SELFPAY ==
[2019-09-03 11:16] VITALS: BMI 28.3
--- NOTE | 2020-04-18 06:38 | MRI_ITS ---
STUDY: MRI RIGHT ANKLE WITHOUT CONTRAST REASON FOR EXAM: Right heel pain since September. TECHNIQUE: Standardized fat and water weighted pulse sequences were obtained in all 3 orthogonal planes. COMPARISON: None. FINDINGS: Normal subcutis adipose space. There is a very small volume of fluid in the submalleolar posterior tibialis tendon sheath (inversion recovery sagittal image 19). The posterior tibialis tendon is morphologically normal. Normal flexor digitorum longus tendon. Normal flexor hallucis longus tendon. There is a very small volume of fluid in the perimalleolar tendon sheath (inversion recovery sagittal image 5). There is a longitudinal split of the perimalleolar peroneus brevis tendon (T2 axial images 16-18). The peroneus longus tendon is morphologically normal. Normal tibialis anterior tendon. Normal extensor hallucis longus tendon. Normal extensor digitorum longus tendons. Normal Achilles tendon and teno-osseous insertion. There is a trace of fluid in the retrocalcaneal bursa. There is interstitial edema in the central cord of the plantar fascia (inversion recovery sagittal images 12-14). There is mild reactive bone edema in the posterior tuberosity of the calcaneus at the origin of the plantar fascia (inversion recovery sagittal images 11, 12). Normal intrinsic muscles of the rearfoot. Normal distal tibiofibular syndesmotic ligamentous complex. Normal lateral ligamentous complex. Normal subtalar ligaments and sinus tarsi. There is a small cyst in the superior body of the calcaneus adjacent to the sinus tarsi. Normal deltoid ligamentous complexes. Normal plantar calcaneonavicular (spring) ligament. Normal tibiotalar articulation. Normal talar dome. Normal subtalar articulations. Normal talonavicular articulation. There is slight subchondral bone edema at the dorsal aspect of the calcaneocuboid articulation. Normal navicular-cuneiform articulations. There is arthrosis of the first tarsometatarsal articulation with chondral thinning and subchondral cystic change/bone edema (inversion recovery sagittal images 20, 21). MRI/Lower Ext Joint Only (Routine) IMPRESSION: Plantar fasciitis with mild reactive bone edema in the posterior tuberosity of the calcaneus without demonstrated tear of the plantar fascia or calcaneal stress fracture. Longitudinal split of the peroneus brevis tendon and very mild peroneal tenosynovitis. Very mild posterior tibialis tenosynovitis. Arthrosis of the first tarsometatarsal articulation. Electronically Signed: Wilfrido Ricardo MD at 8:59 EST Tel , Service support ,
== END ==
PROVIDERS: PCP Internal Medicine; Referring Provider Podiatrist; Visit Provider Podiatrist
DX: M72.2 Plantar fascial fibromatosis (principal); M84.374A Stress fracture, right foot, initial encounter for fracture
CPT/HCPCS: 73721

== ENCOUNTER → 2020-08-10 09:52 | Outpatient (CLI) | payer OTHER, SELFPAY ==
--- NOTE | 2020-08-10 09:59 | CDU_ITS ---
Reason For Study: Carotid Stenosis Rt. Velocities/BP Lt. Velocities/BP Prox CCA 124/24 cm/sec. Prox CCA 105/21 cm/sec. Mid CCA 122/25 cm/sec. Mid CCA 123/25 cm/sec. Dist CCA 93/24 cm/sec. Dist CCA 100/27 cm/sec. Prox ICA 93/30 cm/sec. Prox ICA 68/27 cm/sec. Mid ICA 84/25 cm/sec. Mid ICA 94/28 cm/sec. Dist ICA 77/34 cm/sec. Dist ICA 71/30 cm/sec. Rt. ICA/CCA = 0.8. Lt. ICA/CCA = 0.8. Prox ECA 96/19 cm/sec. Prox ECA 97/10 cm/sec. Rt. Vert. 38/11 cm/sec. Lt. Vert. 53/15 cm/sec. Right Extracranial There is intimal thickening but no significant atherosclerotic plaque noted in the right common carotid artery. There is intimal thickening but no significant atherosclerotic plaque noted in the right internal carotid artery. There is no significant atherosclerotic plaque noted in the right external carotid artery. Antegrade flow is noted in the right vertebral artery. Left Extracranial There is heterogeneous, irregular atherosclerotic plaque noted in the left common carotid artery. There is heterogeneous, irregular atherosclerotic plaque noted in the left internal carotid artery. There is heterogeneous, smooth atherosclerotic plaque noted in the left external carotid artery. Antegrade flow is noted in the left vertebral artery. Procedure Carotid Duplex 11936. Exam performed in department. Interpretation Summary No significant atherosclerotic plaque or stenosis noted in the right internal carotid artery. Mild (<50%) stenosis left extracranial internal carotid. Flow within the vertebral arteries is antegrade bilaterally. Ordering Physician: Lavonne Schultz Referring Physician: Lavonne Schultz Performed By: Kira Delarosa, MADI, RVT
== END ==
PROVIDERS: PCP Internal Medicine; Referring Provider Internal Medicine; Visit Provider Internal Medicine
DX: I65.22 Occlusion and stenosis of left carotid artery (principal)
CPT/HCPCS: 93880

== ENCOUNTER 2021-05-15 16:50 | Outpatient (CLI) | payer OTHER, SELFPAY ==
[2021-05-15 17:09] VITALS: BP 131/88; PULSE 91; RESP 16; TEMP 36.4; O2SAT 96; BMI 28.2
[2021-05-15] MEDS: 0.9% Saline Lock 10 ML Syringe IV (17:15)
[2021-05-15 18:06] VITALS: BP 129/80; PULSE 80; RESP 16; TEMP 36.6; O2SAT 96
[2021-05-15 19:00] VITALS: BP 118/95; PULSE 78; RESP 16; TEMP 36.6; O2SAT 98
== END 2021-05-15 19:07 | disposition home or self-care (01) ==
LOC: MS3OUT 16:51 → MS3 16:51
PROVIDERS: PCP Internal Medicine; Referring Provider Nurse Practitioner Adult Health; Visit Provider Nurse Practitioner Adult Health
DX: U07.1 COVID-19 (principal)
CPT/HCPCS: J7050; M0245; Q0245; A4216

== ENCOUNTER 2021-05-21 01:35 | Emergency (ER) | payer OTHER, SELFPAY ==
[2021-05-21 01:36] VITALS: BP 133/85; PULSE 66; RESP 18; TEMP 36.1; O2SAT 97; BMI 28.2
[2021-05-21] MEDS: Ketorolac 15 MG/ML Vial IM (02:10)
[2021-05-21] MEDS: Ondansetron ODT 4 MG Tablet PO (04:01)
[2021-05-21] MEDS: Morphine 4 MG/ML Syringe IM (04:01)
[2021-05-21 04:05] VITALS: BP 149/109; PULSE 69; RESP 93; TEMP 36.2
--- NOTE | 2021-05-21 04:05 | ED.VIS.BACK ---
HPI History of Present Illness Chief Complaint: Back Narrative Narrative: 51-year-old male with back pain. This is acute on chronic. He has been seeing a chiropractor but his pain is actually been improving. Today he twisted awkwardly and felt pain that radiated down his right leg. No loss of bladder or bowel control. No saddle anesthesia. Patient took 2 5 mg Percocets prior to arrival which were left over from a previous shoulder surgery. Denies any urinary complaints. No constipation or diarrhea. PFSH PFSH Medical History Bilateral headaches High blood cholesterol Home Medications aspirin 81 mg PO DAILY 02/12/19 [History Last Taken Unknown] oxycodone-acetaminophen [Percocet] 1 tab PO Q6H PRN 3 Days #10 tab 05/21/21 [Rx Last Taken Unknown] Allergy/AdvReac Type Severity Reaction Status Date / Time hydrocodone [From Vicodin] Allergy Hives Verified 05/21/21 01:35 Family History Father Coronary arteriosclerosis Grandfather Coronary arteriosclerosis Other Cancer Surgical History History of shoulder surgery Social History Smoking Status: Never smoker alcohol intake: current alcohol intake frequency: holidays/special occasions only substance use type: does not use what type of physical activity do you participate in: aerobics and weight training ROS ROS ED Constitutional Constitutional ED: Denies chills or fever(s) Eyes Eyes: Denies blurry vision or diplopia ENT ENT ED: Denies rhinorrhea or sore throat Cardiovascular Cardiovascular: Denies chest pain or palpitations Respiratory/Chest Respiratory/Chest: Denies dyspnea or sputum Gastrointestinal Gastrointestinal: Denies abdominal pain, nausea or vomiting Genitourinary Genitourinary ED: Denies dysuria or hematuria Musculoskeletal Musculoskeletal: Reports back pain Integumentary Denies abscess or rash Neurologic Neurologic: Denies headache(s) or paresthesias Psychiatric Psychiatric: Denies anxiety or depression EXAM Physical Exam Const Vital Signs: 05/21/21 01:36 Temperature 97.0 F L Temperature Source Temporal Pulse Rate 66 Respiratory Rate 18 Blood Pressure 133/85 H Blood Pressure Mean 101 Pulse Ox 97 Oxygen Delivery Method Room Air Positive well nourished General Appearance ED: NAD; Negative for pallor HEENT Reports moist mucous membranes Negative for trauma Eyes PERRL and EOMs intact bilaterally Resp normal respiratory effort and clear to auscultation bilaterally Cardio regular rhythm Back/Spine Back/Spine Narrative: Tenderness to palpation right lumbar paraspinal musculature. No midline spinal deformity or step-off. Patient is ambulatory Neuro oriented x3 Sensorium / Orientation: alert Psych mental status grossly normal Skin General Skin Exam: Negative for jaundice or pallor MDM MDM MDM Narrative Medical decision making narrative: Patient presenting with back pain but he did take two 5 mg Percocets prior to arrival. I did give him a shot of Toradol initially. Slowly his pain has improved. He did require shot of morphine he is pain under control. I believe the Percocets are starting to work for him. No signs or symptoms of cauda equina syndrome. I will give him a short supply until he can follow-up with his primary. Patient is discharged home in stable condition. Impression: 1. Lumbar strain Discharge Plan Triage Chief Complaint: Back ED Provider: Pan Cardoso Dx/Rx/DC Orders Instructions: ED Back Pain (Acute or Chronic) Prescriptions: New oxycodone-acetaminophen [Percocet] 5-325 mg tablet 1 tab PO Q6H PRN (Reason: pain) 3 Days Qty: 10 RF: 0 No Action aspirin 81 MG tablet,delayed release (DR/EC) 81 mg PO DAILY RF: 0 Primary Care Provider: Lavonne Schultz Referrals: Lavonne Schultz DO [Primary Care Provider] - Disposition Disposition: Home, Self Care
== END 2021-05-21 04:16 | disposition home or self-care (01) ==
PROVIDERS: Emergency Provider Student in an Organized Health Care Education/Training Program; PCP Internal Medicine
DX: S39.012A Strain of muscle, fascia and tendon of lower back, initial encounter (principal); X58.XXXA Exposure to other specified factors, initial encounter; Z79.82 Long term (current) use of aspirin
CPT/HCPCS: 96372; 99282

== ENCOUNTER → 2021-05-23 11:51 | Outpatient (CLI) | payer OTHER, SELFPAY ==
--- NOTE | 2021-05-23 11:53 | RAD_ITS ---
STUDY: X-RAY - LUMBAR SPINE REASON FOR EXAM: Male, 51 years old. LOW BACK PAIN BACK PAIN TECHNIQUE: XR Spine Lumbar Min 4 Views COMPARISON: None FINDINGS: There is straightening of the normal lumbar lordosis. There is no substantial scoliosis. There is a normal alignment of the vertebrae. There is L5, L3, and L2 endplate spondylosis of the lumbar vertebrae. There is disc space narrowing at L5-S1. There are atherosclerotic vascular calcifications. The soft tissue structures are unremarkable. RAD/L/S Spine Min 4 Views IMPRESSION: There is mild straightening of the normal lumbar lordosis. This can suggest back strain. Mild degenerative findings in the lumbar spine. Electronically Signed: Everardo Leos MD at 15:26 EST , Service support ,
== END ==
PROVIDERS: PCP Internal Medicine; Referring Provider Internal Medicine; Visit Provider Internal Medicine
DX: M54.16 Radiculopathy, lumbar region (principal)
CPT/HCPCS: 72110

== ENCOUNTER → 2021-06-15 | Outpatient (CLI) | payer OTHER, SELFPAY ==
--- NOTE | 2021-06-15 08:00 | MRI_ITS ---
STUDY: MRI LUMBAR SPINE WITHOUT CONTRAST REASON FOR EXAM: Male, 51 years old. BACK PAIN, left leg pain, NKI TECHNIQUE: Standardized fat and water weighted pulse sequences were obtained in the sagittal and axial planes. COMPARISON: 05/23/2021 FINDINGS: Straightening of alignment of the columns of the lumbar spine visualized. No evidence of spondylolisthesis. The lumbar vertebral bodies demonstrate no evidence of compression deformity, multilevel degenerative endplate changes seen. Disc desiccation visualized most prominent at L2-L3, L4-5 and L5-S1, decreased intervertebral disc height visualized at L5-S1. No evidence of T2 punctation seen within the marrow of the lumbar vertebral bodies on the STIR sequence to suggest fracture, edema or infiltrative process. The terminal cord demonstrates unremarkable contours, unremarkable signal intensity, no evidence of thickening or clumping of the terminal nerve roots to suggest arachnoiditis. The cord terminates at the level of the L1-2 intervertebral disc space. Limited evaluation of the abdominal soft tissues is unremarkable. L1-2: Degenerative changes, T2 prolongation visualized in the left posterolateral annular fibers consistent with annular tear. Mild hypertrophic changes visualized in the facet joints, no significant narrowing of the spinal canal or right neural foramina, mild narrowing of the left neuroforamina is seen at this level. L2-3: Degenerative intervertebral disc changes and mild hypertrophic changes in the facet joints. No significant narrowing of the spinal canal or bilateral neural foramina is visualized at this level. L3-4: No significant degenerative disc changes, mild hypertrophic changes in the facet joints but no significant narrowing of the spinal canal or bilateral neural foramina seen at this level. There is a 1.1 x 0.9 cm soft tissue density visualized in the anterior lateral aspect of the spinal canal at the level of the L5 vertebral body, best visualized on axial series 5 image 11, sagittal series 2 image 8 and posterior series 4 image 7 T2 prolongation on the STIR sequence is visualized and it is visualized in alignment with the exiting nerve root at this level, differential diagnosis would include a nerve sheath tumor or a superiorly extruding disc fragment, would recommend contrast enhanced images for optimal evaluation. L4-5: Degenerative disc changes with a left foraminal disc bulge seen, hypertrophic changes in the facet joints and ligamentum flavum with T2 prolongation visualized in the facet joints bilaterally at this level. Mild narrowing of the left lateral space no significant narrowing of the spinal canal is visualized, mild narrowing of the left neuroforamina and moderate to severe narrowing of the left neuroforamina seen at this level., L5-S1: Degenerative disc changes with hypertrophic changes in the facet joints seen at this level, no significant narrowing of the spinal canal or right neural foramina, moderate narrowing of the left neuroforamina seen at this level. Normal visualized sacral ala. Normal visualized paraspinous soft tissue structures. MRI/Spine Lumbar (Routine) IMPRESSION: Annular tear in the left posterior lateral fibers of L1-L2. Degenerative changes of the lumbar spine visualized most prominent at L5-S1. 1 cm soft tissue density visualized in the anterior lateral aspect of the spinal canal at the level of the L5 vertebral body, differential diagnosis would include a nerve sheath tumor or a superiorly extruding disc fragment, would recommend contrast enhanced images for optimal evaluation. Electronically Signed: Deacon Lofton MD at 9:26 EST Tel , Service support ,
[2021-06-15 10:38] LABS: Absolute Lymphocyte Count 1.07 X10^3/uL (0.83-4.51); Absolute Neutrophil Count 2.7 X10^3/uL (2.0-7.7); Basophil# 0.04 X10^3/uL; Basophil% 0.8 % (0-1); Eosinophil# 0.11 X10^3/uL; Eosinophils% 2.3 % (0-5); Hematocrit 45.4 % (40-54); Hemoglobin 15.4 g/dL (13.0-16.5); Lymphocyte # 1.07 X10^3/ul (0.83-4.51); Lymphocyte % 22.4 % (19-41); Mean Corp Hgb Conc 33.9 g/dL (32-36); Mean Corpuscular Volume 94.4 fL (80-94); Mean Platelet Vol. 11.1 fl (6.2-12.0); Monocyte# 0.82 X10^3/uL; Monocyte% 17.2 % (0-10); NRBC Flagged by Analyzer 0 % (0-5); Neutrophil # 2.72 X10^3/uL (2.7-7.7); Neutrophil % 56.9 % (47-70); Platelet Count 215 K/mm3 (150-450); RBC Distribution Width CV 12.3 % (11.6-14.6); RBC Distribution Width SD 42.8 fl (35.1-43.9); Red Blood Count 4.81 M/mm3 (4.6-6.2); White Blood Count 4.8 K/mm3 (4.4-11.0)
[2021-06-15 10:51] LABS: ALB/GLOB Ratio 1.2 RATIO (0.9-2.4); AST(SGOT) 15 U/L (15-37); Alanine Aminotransfer ALT/SGPT 34 U/L (16-61); Albumin, Serum 3.4 g/dL (3.2-5.0); Alkaline Phosphatase 56 U/L (45-117); Anion Gap 5 (5-15); BUN 21 mg/dL (7-18); BUN/Creat Ratio 23.2 RATIO (10-20); Calcium,Total 8.6 mg/dL (8.5-10.1); Chloride 109 mmol/L (98-107); EST Glomerular Filtration Rate 94 mL/min (>60); Est Glom Filt Rate - Afr Amer 113 mL/min (>60); Globulin 2.9 g/dL (2.2-4.2); Glucose 83 mg/dL (74-106); Potassium 4.4 mmol/L (3.5-5.1); Protein, Total 6.3 g/dL (6.4-8.2); Sodium Level 142 mmol/L (136-145)
== END | disposition home or self-care (01) ==
LOC: MRI 07:59 → LABSPEC 10:18
PROVIDERS: PCP Internal Medicine; Referring Provider Anesthesiology Pain Medicine; Visit Provider Anesthesiology Pain Medicine
DX: M54.16 Radiculopathy, lumbar region (principal); R35.0 Frequency of micturition
CPT/HCPCS: 72148; 80053; 85025

== ENCOUNTER 2021-07-13 07:20 | Outpatient (CLI) | payer OTHER, SELFPAY ==
--- NOTE | 2021-07-13 07:18 | MRI_ITS ---
STUDY: MRI LUMBAR SPINE WITH CONTRAST REASON FOR EXAM: Male, 51 years old. Follow up from previous non contrast MRI -- tumor vs. disc fragment TECHNIQUE: Standardized fat and water weighted pulse sequences were obtained in the sagittal and axial following administration of 20ML IV DOTAREM. COMPARISON: Noncontrast MRI of the lumbar spine 06/15/2021. FINDINGS: T12-L1: Normal endplates. Normal disc height, hydration and morphology. Normal bilateral facet joints. Normal central canal and bilateral lateral recesses. Normal bilateral intervertebral neural foramina. Normal lumbar lordosis. There is no substantial scoliosis. Normal conus medullaris that terminates at the upper L1 vertebral body level. L1-2: Normal endplates. Normal disc height, hydration and morphology. Normal bilateral facet joints. Normal central canal and bilateral lateral recesses. Normal bilateral intervertebral neural foramina. No abnormal enhancing lesions intradurally and extradurally. L2-3: Normal endplates. Normal disc height, hydration and morphology. Normal bilateral facet joints. Normal central canal and bilateral lateral recesses. Normal bilateral intervertebral neural foramina. No abnormal enhancing lesions intradurally and extradurally. L3-4: Normal endplates. Normal disc height, hydration and morphology. Normal bilateral facet joints. Enhancing left ventral extradural defect at the L4 pedicle level and extending below the L4 pedicle level has central T1 hypointensity. This accounts for the mild stenosis of the left lateral recess. Normal central canal and right lateral recess. Normal bilateral intervertebral neural foramina. L4-5: Normal endplates. Very minimal disc space height narrowing with very minimal loss of disc hydration. A small sliver of the left lateral enhancing ventral extradural defect with cephalad disc extrusion has nonenhancing central component. This is most likely a sequestrated disc fragment comment from the L4-L5 disc space level. Mild to moderate flattening central canal stenosis with an AP canal diameter is 7.7 mm. Prominent dorsal epidural lipomatosis. Normal facet joints. Normal bilateral intervertebral neural foramina. L5-S1: MODIC type II degenerative vertebral marrow fatty changes underneath the vertebral endplates. Pronounced disc space height narrowing. No significant facet arthropathy. Capacious central canal. Normal bilateral lateral recesses. Normal bilateral intervertebral neural foramina. Normal visualized sacral ala. Normal visualized paraspinous soft tissue structures. Partially enhancing left ventral extradural defect with central nonenhancing hypointensity is suspicious for left L4-L5 posterior cephalad disc extrusion with sequestration. OPINION: 1. Partially enhancing left ventral extra dural defect extending from the L4 pedicle level and below the L4 pedicle is suspicious for left L4-L5 posterior cephalad disc extrusion and sequestration. 2. Mild to moderate flattening central canal stenosis at L4-L5 disc space level with an AP canal diameter of 7.7 mm secondary to prominent dorsal epidural lipomatosis more than developmentally short pedicles. Electronically Signed: Khurram Petit MD at 12:44 EST , MRI/Spine Lumbar WITH Contrast
== END 2021-07-13 23:59 | disposition short-term general hospital (02) ==
PROVIDERS: PCP Internal Medicine; Referring Provider Chiropractor; Visit Provider Chiropractor
DX: M51.36 Other intervertebral disc degeneration, lumbar region (principal); M99.03 Segmental and somatic dysfunction of lumbar region
CPT/HCPCS: 72149; A9575

== ENCOUNTER → 2021-11-29 | Outpatient (CLI) | payer OTHER, SELFPAY ==
--- NOTE | 2021-11-29 09:58 | CDU_ITS ---
Reason For Study: Carotid stenosis Rt. Velocities/BP Lt. Velocities/BP Prox CCA 102.1/20 cm/sec. Prox CCA 112.1/21.2 cm/sec. Mid CCA 102.1/26.5 cm/sec. Mid CCA 107.2/22.5 cm/sec. Dist CCA 123/31.7 cm/sec. Dist CCA 108.4/29.8 cm/sec. Prox ICA 48.6/10.8 cm/sec. Prox ICA 75.3/22.5 cm/sec. Mid ICA 82.6/26.5 cm/sec. Mid ICA 66.7/28.6 cm/sec. Dist ICA 73.4/27.8 cm/sec. Dist ICA 60.5/23.7 cm/sec. Rt. ICA/CCA = 0.81. Lt. ICA/CCA = 0.69. Prox ECA 93/18.6 cm/sec. Prox ECA 96.2/15.1 cm/sec. Rt. Vert. 36/10.7 cm/sec. Lt. Vert. 42.1/12.4 cm/sec. Right Extracranial There is intimal thickening but no significant atherosclerotic plaque noted in the right common carotid artery. There is intimal thickening but no significant atherosclerotic plaque noted in the right internal carotid artery. There is intimal thickening but no significant atherosclerotic plaque noted in the right external carotid artery. Antegrade flow is noted in the right vertebral artery. Left Extracranial There is intimal thickening but no significant atherosclerotic plaque noted in the left common carotid artery. There is homogeneous, smooth atherosclerotic plaque noted in the left internal carotid artery. There is intimal thickening but no significant atherosclerotic plaque noted in the left external carotid artery. Antegrade flow is noted in the left vertebral artery. Procedure Carotid Duplex 19175. This is a Carotid Duplex examination using B-mode, color flow and specral Doppler. Exam performed in department. VL/Carotid Duplex Ultrasound Interpretation Summary No significant atherosclerotic plaque or stenosis noted in the right internal c arotid artery. Mild (<50%) stenosis left extracranial internal carotid. Flow within the vertebral a rteries is antegrade bilaterally. Ordering Physician: Lavonne Schultz Referring Physician: Lavonne Schultz D.O. Performed By: Bina Roberts RVT
== END | disposition home or self-care (01) ==
LOC: CVS 09:54
PROVIDERS: PCP Internal Medicine; Visit Provider Internal Medicine
DX: I65.22 Occlusion and stenosis of left carotid artery (principal)
CPT/HCPCS: 93880

== ENCOUNTER 2022-03-16 12:34 | Observation (INO) | payer OTHER, SELFPAY ==
[2022-03-16] VITALS (12 sets, daily range): BP systolic 120–155; BP diastolic 80–109; PULSE 61–91; RESP 16–22; TEMP 36.5–37.1; O2SAT 94–100; BMI 29.9; BMI 29.6
--- NOTE | 2022-03-16 12:37 | ED.RN ---
stroke alert called in triage
--- NOTE | 2022-03-16 12:41 | CT_ITS ---
We are attempting to reach an attending provider to discuss findings. An addendum with communication details will be sent when the communication is complete. STUDY: CTA HEAD AND NECK WITH CONTRAST REASON FOR EXAM: Male, 51 years old. Neuro deficit, acute, stroke suspected RADIATION DOSAGE (If Supplied By Facility): CTDIvol = ( 20.23 ) mGy, DLP = ( 813.49 ) mGycm TECHNIQUE: CT angiography was performed with a multi-detector CT scanner. Data acquisition was obtained from the skull base through the vertex following intravenous administration of IV 100mL Isovue-370. MIP images were reconstructed from the axial data set. Post-processing of the angiographic images was performed, with multiplanar reformation and 3D reconstruction. Individualized dose optimization techniques were used for this CT. COMPARISON: No relevant priors. FINDINGS: Normal bilateral petrous carotid arteries. There is calcified plaque formation of the right cavernous carotid artery, without a cross-sectional luminal stenosis. There is calcified plaque formation of the left cavernous carotid artery, without a cross-sectional luminal stenosis. Normal right A1 segments of the anterior cerebral artery. Normal left A1 segments of the anterior cerebral artery. Normal intact anterior communicating artery (ACOM). Normal bilateral A2 segments of the anterior cerebral arteries. Normal right M1 and M2 segments of the middle cerebral arteries, with a normal M1 bifurcation. Normal left M1 and M2 segments of the middle cerebral arteries, with a normal M1 bifurcation. Normal right posterior communicating artery (PCOM). Normal left posterior communicating artery (PCOM). Normal bilateral vertebral arteries. Normal basilar artery with a normal basilar bifurcation. The visualized bilateral superior cerebellar (SCA) arteries are normal. Normal bilateral P1, P2 and visualized P3 segments of the posterior cerebral arteries. There is no demonstrated aneurysm of the [place] of [place]. Mucosal polyp or retention cyst of the right maxillary sinus. Prominence of the nasal cavity. AORTIC ARCH: Normal visualized aortic arch. Normal origins of the brachiocephalic, left common carotid, and left subclavian arteries. RIGHT CAROTID ARTERIES: Normal right common carotid artery (CCA). Normal right common carotid bulb. There is minimal atherosclerotic plaque formation of the origin of the right internal carotid artery with less than 50% cross sectional diameter stenosis. Normal visualized cervical portion of the right internal carotid artery. Normal origin of the right external carotid artery (ECA). LEFT CAROTID ARTERIES: Normal left common carotid artery (CCA). Normal left common carotid bulb. Normal origin of the left internal carotid (ICA) artery without a hemodynamically significant stenosis. Normal visualized cervical portion of the left internal carotid artery. Normal origin of the left external carotid artery (ECA). VERTEBRAL ARTERIES: Normal bilateral vertebral arteries. CT/STROKE CTA Head AND Neck W/Con IMPRESSION: Minimal atherosclerotic plaque formation of the right internal carotid artery at its origin. Electronically Signed: Dre Luna MD at 13:14 EDT ,
--- NOTE | 2022-03-16 12:41 | EKG12_ITS ---
Test Reason : STRROKE Blood Pressure : / mmHG Vent. Rate : 082 BPM Atrial Rate : 082 BPM P-R Int : 162 ms QRS Dur : 096 ms QT Int : 358 ms P-R-T Axes : 038 -12 011 degrees QTc Int : 418 ms Normal sinus rhythm Normal ECG Confirmed by HEYDI HOPKINS, EDUAR ([id number]), newspaper photo editor SUE SALDIVAR ([id number]) on 03/19/2022 10:07:41 AM Referred By: RAFIA Confirmed By:EDUAR SOLIZ MD
--- NOTE | 2022-03-16 12:41 | CT_ITS ---
STUDY: CT HEAD STROKE PROTOCOL W/O CONTRAST INJECTION REASON FOR EXAM: Male, 51 years old. Neuro deficit, acute, stroke suspected RADIATION DOSAGE (If Supplied By Facility): CTDIvol = ( 44.99 ) mGy, DLP = ( 846.73 ) mGycm TECHNIQUE: Transaxial CT imaging of the brain was performed without administration of intravenous contrast material. Individualized dose optimization techniques were used for this CT. COMPARISON: No relevant priors. FINDINGS: Normal soft tissue structures. Normal calvarium. Normal size ventricles and extra-axial spaces for the patient''s age. Normal white matter tracts of the cerebral hemispheres. Normal basal ganglia and thalami. Normal brainstem. Normal cerebellum. There is no intracranial hemorrhage. There are no findings of an acute ischemic infarction. There is a 1.6 cm x 1.9 cm retention cyst or polyp along the anterior lateral aspect of the right maxillary sinus. Minimal maxillary sinus thickening bilaterally. ASPECT score: 10 CT/STROKE Brain/Head without Cont IMPRESSION: Normal unenhanced CT scan of the brain. N.B. : The above Results were Read Back by Dre Luna MD to Lavell Chin and understanding confirmed on 03/16/2022 12:52:39 (ET). Electronically Signed: Dre Luna MD at 12:53 EDT ,
--- NOTE | 2022-03-16 12:42 | ED.VIS.STROK ---
HPI History of Present Illness Chief Complaint: Stroke Alert Informant: patient and spouse/S.O. Onset/Context/Timing Onset: Today and Hours Context: Sudden Onset Timing: Continuous Current Severity: Mild Maximum Severity: Mild Associated Symptoms Associated Symptoms: Negative for Headache, Nausea, Vomiting or Chest Pain Narrative Narrative: 51-year-old male history of prior MA in 2019 with 1 stent. He is on aspirin no other anticoagulation. About an hour ago he had difficulty with his speech with delay in what he wanted to say. Denies any headache or chest pain. He is never had a stroke or mini stroke. He denies any head trauma. He is accompanied by his . Stroke team was called I saw the patient in triage. Prior similar symptoms: No Recent Illness/Hospitalization: No PFSH PFSH Medical History (Updated 03/16/22 @ 14:[address] Iain Chin MD) Bilateral headaches High blood cholesterol Home Medications aspirin 81 mg tablet,delayed release 81 mg PO DAILY 02/12/19 [History Last Taken Unknown] oxycodone-acetaminophen 5 mg-325 mg tablet (Percocet) 1 tab PO Q6H PRN pain 3 days #10 tabs 05/21/21 [Rx Last Taken Unknown] gabapentin 100 mg capsule ea PO 05/24/21 [History Last Taken Unknown] prednisone 10 mg tablet ea PO 05/24/21 [History Last Taken Unknown] Allergy/AdvReac Type Severity Reaction Status Date / Time hydrocodone [From Vicodin] Allergy Hives Verified 12/21/21 09:20 Family History Father Coronary arteriosclerosis Grandfather Coronary arteriosclerosis Other Cancer Surgical History (Updated 03/16/22 @ 14:[address] Iain Chin MD) History of shoulder surgery Social History Smoking Status: Never smoker alcohol intake: current alcohol intake frequency: holidays/special occasions only substance use type: does not use what type of physical activity do you participate in: aerobics and weight training ROS ROS ED ROS Narrative Denies recent illness Review of Systems ROS Unobtainable: Denies due to encephalopathy Constitutional Constitutional ED: Denies chills or fever(s) Eyes Eyes: Denies blurry vision ENT ENT ED: Denies ear pain Cardiovascular Cardiovascular: Denies chest pain Respiratory/Chest Respiratory/Chest: Denies cough or dyspnea Gastrointestinal Gastrointestinal: Denies abdominal pain Genitourinary Genitourinary ED: Denies dysuria or hematuria Musculoskeletal Musculoskeletal: Denies arthralgias Integumentary Denies abscess Neurologic Neurologic: Denies headache(s) Psychiatric Psychiatric: Denies anxiety Endocrine Endocrinology: Denies polydipsia Hematologic/Lymphatic Hematologic/Lymphatic: Denies easy bleeding Allergic/Immunologic Allergic/Immunologic ED: Denies mouth swelling or urticaria EXAM Physical Exam Narrative Exam Narrative: -year-old male no acute distress. Sitting upright in triage. and side. H EENT exam unremarkable atraumatic. Pupils round reactive light. No facial droop. He does have delayed speech. Neck nontender. Lungs clear to auscultation. Heart regular rhythm no gallop. No murmur. Abdomen soft nontender. Moving all 4 extremities. 5 out of 5 histology specialist strength. Dorsi plantarflexion intact. Neurologic exam he does have delayed speech and expressive aphasia. No facial droop. Normal motor strength and sensation both upper and lower extremities. NIH score of 1. Const Vital Signs: 03/16/22 12:38 03/16/22 12:57 03/16/22 12:57 Temperature Temperature Source Pulse Rate 87 91 Respiratory Rate 18 16 Blood Pressure 127/91 H 155/90 H Blood Pressure Mean 103 111 Pulse Ox 100 97 Oxygen Delivery Method Room Air Room Air Room Air 03/16/22 12:57 03/16/22 13:10 03/16/22 13:34 Temperature 97.8 F Temperature Source Temporal Pulse Rate 87 89 79 Respiratory Rate 18 22 H 19 H Blood Pressure 134/84 H 134/84 H 120/109 H Blood Pressure Mean 100 100 112 Pulse Ox 95 95 94 Oxygen Delivery Method Room Air Room Air Room Air 03/16/22 13:30 03/16/22 14:00 Temperature Temperature Source Pulse Rate 79 73 Respiratory Rate 18 17 Blood Pressure 120/109 H 150/88 H Blood Pressure Mean 112 108 Pulse Ox 94 97 Oxygen Delivery Method Room Air Room Air Positive well nourished and well developed; Negative for obese, cachectic, contractures or unkempt General Appearance ED: well developed and NAD; Negative for unkempt, cachectic or contractures Nutritional Appearance: Negative for cachectic or obese HEENT Reports moist mucous membranes atraumatic; Negative for trauma Eyes PERRL and EOMs intact bilaterally General Eye ED: Negative for pale conjunctiva or scleral icterus Neck no lymphadenopathy, supple and no JVD General: Negative for tenderness Thyroid: Negative for other Chest Wall inspection of chest normal and palpation of chest normal Resp normal respiratory effort and clear to auscultation bilaterally Effort and Inspection: Negative for retractions Auscultation: Negative for rales, rhonchi or wheezes Cardio no murmurs Rate: regular rate; Negative for bradycardia or tachycardic Rhythm: regular rhythm GI normal to inspection, nondistended, normoactive bowel sounds, soft to palpation, non-tender, non-distended and no masses Inspection: Negative for abdominal distention Auscultation: normoactive bowel sounds Palpation: Negative for tender Back/Spine no CVA tenderness General Back: Negative for CVA tenderness Cervical Spine: Negative for cervical spine tenderness Thoracic Spine / Upper Back: thoracic spinal tenderness Lumbar Spine / Lower Back: lumbar spinal tenderness Extremity normal to inspection General Extremety ED: Negative for deformity or edema General Extremity: Negative for deformity or edema Neuro oriented x3, CN's II-XII intact bilaterally and no sensory deficits noted Neuro Narrative: Neurologic exam shows an expressive aphasia. Otherwise normal. No motor loss. Sensorium / Orientation: alert, oriented to person, oriented to place and oriented to time; Negative for orientation impaired, confused, lethargic or stuporous Speech: Negative for speech normal Motor Exam: strength 5/5 throughout Psych mental status grossly normal Appearance: Negative for unkempt Attitude: No agitated Mood & Affect: Negative for depressed Attention / Concentration: Negative for other Skin no wounds General Skin Exam: Negative for jaundice Lesions: no lesions Rashes: no rashes Trauma: Negative for abrasion NIHSS NIHSS Initial: 1a Level of Consciousness: 0 1b LOC Questions (Score 2 if aphasic/stupor): 0 1c LOC Commands (Only score 1st attempt): 0 2 Best Gaze (If aphasic, use reflexive mvmts.): 0 3 Visual: 0 4 Facial Palsy: 0 5 Motor Arm Right (UN = amputation/fusion): 0 5 Motor Arm Left: 0 6 Motor Leg Right: 0 6 Motor Leg Left: 0 7 Limb ataxia (Only + if out of proportion): 0 8 Sensory (Aphasia/stupor=0 or 1, coma=2): 0 9 Best Language: 0 10 Dysarthria (mute, coma=2, intubated=UN): 1 11 Extinction and Inattention (only scored if +): 0 Total Score: 1 MDM MDM MDM Narrative Medical decision making narrative: 51-year-old male has a delayed speech. We will go through a stroke work-up including a CTA head and neck. Stroke team has been called. Repeat exam patient well at 2:25 PM. Neurologic exam normal. His expressive aphasia resolved. Patient's stroke work-up was unremarkable. Discussed with the [facility] neurologist on 4 strokes. We did not feel tPA was necessary. Patient was given Plavix as requested by the neurologist. I will speak to the hospitalist about admission. Lab Data Attestation: I reviewed the patient's lab results. Lab results narrative: CBC normal. White count 7. H&H 16 and 45. PT/INR and PTT normal. Electrolytes unremarkable gap of 6. BUN and creatinine at 20 and 1. Glucose 122. Troponin normal. Labs: Laboratory Results - last 24 hr 03/16/22 03/16/22 03/16/22 12:40 12:40 12:40 WBC 7.6 RBC 4.88 Hgb 16.0 Hct 45.7 MCV 93.6 MCH 32.8 H MCHC 35.0 RDW Std Deviation 40.4 RDW Coeff of Jaimie 11.8 Plt Count 225 MPV 11.1 Immature Gran % (Auto) 0.300 Neut % (Auto) 62.8 Lymph % (Auto) 22.8 [place] % (Auto) 10.9 H Eos % (Auto) 2.8 Baso % (Auto) 0.4 Absolute Neuts (auto) 4.8 Absolute Lymphs (auto) 1.73 Nucleated RBC % 0 PT 13.5 INR 1.1 APTT 29.7 Sodium 141 Potassium 4.3 Chloride 109 H Carbon Dioxide 26.0 Anion Gap 6 BUN 20 H Creatinine 1.08 Estim Creat Clear Calc 93.02 Est GFR (MDRD) Af Amer 92 Est GFR (MDRD) Non-Af 76 BUN/Creatinine Ratio 18.5 Glucose 122 H Calcium 8.9 Troponin I High Sens 4 POC Glucose 03/16/22 03/16/22 12:40 13:09 WBC RBC Hgb Hct MCV MCH MCHC RDW Std Deviation RDW Coeff of Jaimie Plt Count MPV Immature Gran % (Auto) Neut % (Auto) Lymph % (Auto) [place] % (Auto) Eos % (Auto) Baso % (Auto) Absolute Neuts (auto) Absolute Lymphs (auto) Nucleated RBC % PT INR APTT Sodium Potassium Chloride Carbon Dioxide Anion Gap BUN Creatinine Estim Creat Clear Calc Est GFR (MDRD) Af Amer Est GFR (MDRD) Non-Af BUN/Creatinine Ratio Glucose Calcium Troponin I High Sens POC Glucose 144 H 116 H Radiography Diagnostic Testing: Clinical Impression(s) from Imaging Studies Brain CT 03/16/22 12:41 IMPRESSION: Normal unenhanced CT scan of the brain. N.B. : The above Results were Read Back by Dre Luna MD to Lavell Chin and understanding confirmed on 03/16/2022 12:52:39 (ET). Electronically Signed: Dre Luna MD at 12:53 EDT , ADDENDUM: 03/16/22 1300 IMPRESSION: Normal unenhanced CT scan of the brain. N.B. : The above Results were Read Back by Der Luna MD to Lavell Chin and understanding confirmed on 03/16/2022 12:52:39 (ET). Electronically Signed: Dre Luna MD at 12:53 EDT , Head/Neck CTA 03/16/22 12:41 IMPRESSION: Minimal atherosclerotic plaque formation of the right internal carotid artery at its origin. Electronically Signed: Dre Luna MD at 13:14 EDT , ADDENDUM: 03/16/22 1325 IMPRESSION: Minimal atherosclerotic plaque formation of the right internal carotid artery at its origin. N.B. : The above Results were Read Back by Dre Luna MD to Dr Giuseppe MD, and understanding confirmed on 03/16/2022 13:18:06 (ET). Electronically Signed: Dre Luna MD at 13:14 EDT , Chest X-Ray 03/16/22 13:22 IMPRESSION: Hyperinflation. The lungs are clear. Prior right shoulder replacement. Electronically Signed: Dre Luna MD at 13:41 EDT , Rhythm Strip Rhythm Strip: Sinus Rhythm Rate: 82 Ectopy: None EKG Initial EKG: Attestation: I personally reviewed and interpreted this EKG as follows: Interpretation: Sinus Rhythm and No Acute Injury Pattern Comments: Normal sinus rhythm rate of 82 no acute signs of MA, ischemia nor dysrhythmia. Discharge Plan Triage Chief Complaint: Stroke Alert Other Complaint: Neuro S/Sx ED Provider: Iain Chin Dx/Rx/DC Orders Clinical Impression: Expressive aphasia, History of MA (myocardial infarction), History of coronary artery stent placement Prescriptions: No Action gabapentin 100 mg capsule PO prednisone 10 mg tablet PO aspirin 81 MG tablet,delayed release (DR/EC) 81 mg PO DAILY oxycodone-acetaminophen [Percocet] 5-325 mg tablet 1 tab PO Q6H PRN (Reason: pain) 3 Days Qty: 10 0RF Primary Care Provider: Lavonne Schultz Referrals: Lavonne Schultz, [Primary Care Provider] -
[2022-03-16 12:50] LABS: Absolute Lymphocyte Count 1.73 X10^3/uL (0.83-4.51); Absolute Neutrophil Count 4.8 X10^3/uL (2.0-7.7); Basophil# 0.03 X10^3/uL; Basophil% 0.4 % (0-1); Eosinophil# 0.21 X10^3/uL; Eosinophils% 2.8 % (0-5); Hematocrit 45.7 % (40-54); Lymphocyte # 1.73 X10^3/ul (0.83-4.51); Lymphocyte % 22.8 % (19-41); Mean Corpuscular Hgb 32.8 pg (27.0-32.0); Mean Corpuscular Volume 93.6 fL (80-94); Mean Platelet Vol. 11.1 fl (6.2-12.0); Monocyte# 0.83 X10^3/uL; Monocyte% 10.9 % (0-10); NRBC Flagged by Analyzer 0 % (0-5); Neutrophil # 4.78 X10^3/uL (2.7-7.7); Neutrophil % 62.8 % (47-70); Platelet Count 225 K/mm3 (150-450); RBC Distribution Width CV 11.8 % (11.6-14.6); RBC Distribution Width SD 40.4 fl (35.1-43.9); Red Blood Count 4.88 M/mm3 (4.6-6.2); White Blood Count 7.6 K/mm3 (4.4-11.0)
--- NOTE | 2022-03-16 12:59 | CM.ED ---
SW Note Referral Source: Stroke Alert Referral Reason: Stroke Alert SW met with patient's and provided emotional support. Patient's father had a stroke recently so they are familiar with the process and the 's father in law was transferred to [facility]. No other current needs identified. SW remains available if needs arise. Plan: Emotional Support provided. Sharlene LEHMAN
[2022-03-16 13:00] LABS: International Normalized Ratio 1.1; Prothrombin Time (Protime)PT. 13.5 SECONDS (11.7-14.9)
[2022-03-16 13:01] LABS: Bedside Glucose 144 mg/dL (74-106); Partial Thromboplast Time 29.7 Seconds (24.1-36.2)
[2022-03-16 13:07] LABS: Anion Gap 6 (5-15); BUN 20 mg/dL (7-18); BUN/Creat Ratio 18.5 RATIO (10-20); Calcium,Total 8.9 mg/dL (8.5-10.1); Chloride 109 mmol/L (98-107); Creatinine, Serum 1.08 mg/dL (0.70-1.30); EST Glomerular Filtration Rate 76 mL/min (>60); Est Glom Filt Rate - Afr Amer 92 mL/min (>60); Estimated Creatinine Clearance 93.02 ml/min; Glucose 122 mg/dL (74-106); Potassium 4.3 mmol/L (3.5-5.1); Sodium Level 141 mmol/L (136-145); Troponin-I HS 4 pg/mL (3.0-78.0)
--- NOTE | 2022-03-16 13:22 | RAD_ITS ---
STUDY: X-RAY CHEST REASON FOR EXAM: Male, 51 years old. Neuro deficit, acute, stroke suspected TECHNIQUE: Single AP portable view of the chest. COMPARISON: Comparison is made with prior study dated 06/24/2019. FINDINGS: EKG electrodes are seen. Hyperinflation. The lungs are clear. There is no demonstrated pleural abnormality. Normal size heart. Normal mediastinum and kenan. Normal visualized pulmonary arteries. Normal visualized aortic arch and descending thoracic aorta. Normal visualized thoracic spine. There is evidence of prior right shoulder replacement. There is no demonstrated abnormality of the visualized soft tissue structures of the upper abdomen. RAD/Chest 1 View IMPRESSION: Hyperinflation. The lungs are clear. Prior right shoulder replacement. Electronically Signed: Dre Luna MD at 13:41 EDT ,
--- NOTE | 2022-03-16 13:27 | CHAPLAIN ---
Type of Pastoral Visit ___ Initial Visit ___ Follow-up Visit ___ On-call Visit ___ General Patient Visit ___ Spiritual Assessment ___ Family Conference ___ Bereavement _x__ Rapid Response ___ Code Blue ___ Other (describe below) Pastoral Care Referral From ___ Patient ___ Family ___ Nurse ___ Physician ___ Machine Joint Cutter ___ Small Offset Printer _x__ Other (describe below) Sacrament/Intervention ___ Active listening ___ Anointing ___ Sikh ___ Bereavement ___ Communion ___ Triny exploration ___ ___ Life review ___ Prayer ___ Reconciliation ___ Sacrament of Sick _x__ Supportive presence ___ Wedding ___ Other (describe below) Pastoral Comments met with spouse of patient as the pt was in CT; offered presence and support along with SW; escorted spouse to room when patient returned; sister of pt came and was also escorted to room by this research compliance specialist;
[2022-03-16 13:41] LABS: Bedside Glucose 116 mg/dL (74-106)
[2022-03-16] MEDS: Clopidogrel Bisulfate 300 MG Tablet 600 MG PO (14:15)
--- NOTE | 2022-03-16 15:39 | MRI_ITS ---
STUDY: MRI BRAIN WITHOUT CONTRAST REASON FOR EXAM: Male, 51 years old. expressive aphasia TECHNIQUE: Standardized multiplanar fat and water weighted pulse sequences were obtained. COMPARISON: CT brain 03/16/2022. FINDINGS: Normal size of the ventricles and extra-axial spaces for the patient''s age. Normal white matter tracts of the supratentorial brain. Normal bilateral basal ganglia. Normal thalami. There is no extra-axial fluid accumulation. Normal flow voids within the major intracranial circulation suggesting patency by spin echo criteria. Normal sella turcica, pituitary gland, infundibular stalk, optic chiasm and hypothalamus. Normal tectal plate and pineal gland. Normal midbrain, prieto and medulla. Normal cerebellum. Normal basal cisterns. Normal bilateral temporal bones. Normal bilateral internal auditory canals. No demonstrated orbital abnormality, within the constraints of a routine brain study. Small polyp or mucous retention cyst in right maxillary sinus and minor mucosal thickening of the bilateral ethmoid air cells.. Normal calvarium and skull base. Normal visualized soft tissue structures. Normal visualized upper cervical spine. MRI/Brain without Contrast IMPRESSION: Normal unenhanced MRI of the brain Right maxillary bilateral ethmoid sinusitis likely chronic Electronically Signed: Lavell Cuellar MD at 20:28 EDT ,
--- NOTE | 2022-03-16 15:44 | ECHOD_ITS ---
Reason For Study: TIA/CVA Procedure This was a 2D Doppler, Color Flow transthoracic echocardiogram. Exam performed portable in patient room. Left Ventricle The left ventricle is normal in size, thickness, sytstolic function, and diastolic function. The left ventricular ejection fraction is 60 %. Right Ventricle Normal right ventricle. Atria Normal left atrium. Normal right atrium. Bublle study positive, suggstive of PFO. Mitral Valve Trivial mitral valve insufficiency. Tricuspid Valve Trivial tricuspid valve insufficiency. Aortic Valve Normal aortic valve. Pulmonic Valve The pulmonic valve is not well visualized. Trivial eccentric pulmonic valve insufficiency. Great Vessels Normal sized aortic root. Pericardium/Pleural No pericardial effusion. Medication Performed a rapid injection of agitated mix of 9 cc saline and 1cc air to assess for atrial septal defect. MMode/2D Measurements & Calculations LVIDd: 5.0 cm IVSd: 0.94 cm Ao root diam: 3.5 cm LVIDs: 2.9 cm LVPWd: 0.83 cm RVDd: 3.7 cm FS: 41.9 % LAV(MOD-bp): 57.0 ml LVAd ap4: 31.2 cm2 SV(MOD-sp4): 64.5 ml LAV(MOD-bp) Indexed: 24.7 ml/m2 LVLd ap4: 8.1 cm LAV(MOD-sp2): 61.0 ml EDV(MOD-sp4): 97.2 ml LAV(MOD-sp4): 46.2 ml EDV(sp4-el): 101.5 ml LVAs ap4: 15.4 cm2 LVLs ap4: 6.3 cm ESV(MOD-sp4): 32.6 ml ESV(sp4-el): 32.2 ml EF(MOD-sp4): 66.4 % EF(sp4-el): 68.3 % SV(sp4-el): 69.2 ml LA A4 area: 16.7 cm2 LA dimension(2D): 4.6 cm RA A4 area: 15.5 cm2 Doppler Measurements & Calculations MV E max willian: 65.8 cm/sec Lat Peak E' Willian: 15.3 cm/sec Med Peak E' Willian: 6.1 cm/sec MV A max willian: 70.4 cm/sec E/E' lat: 4.3 E/E' med: 10.8 MV E/A: 0.93 Ao V2 max: 144.1 cm/sec LV V1 max: 118.2 cm/sec PA V2 max: 128.6 cm/sec Ao max P.3 mmHg LV V1 max P.6 mmHg Ao V2 mean: 98.2 cm/sec Ao mean P.2 mmHg Ao V2 VTI: 29.6 cm PI end-d willian: 90.8 cm/sec TR max willian: 241.4 cm/sec TR max P.3 mmHg ECHO/Echo Complete Interpretation Summary The left ventricular ejection fraction is 60 %. Bublle study positive, suggstive of PFO Ordering Physician: Shin Osborn Referring Physician: Lavonne Schultz Performed By: Kira Delarosa, MADI, RVT
--- NOTE | 2022-03-16 19:23 | HP.PCM.HOS_ITS ---
HPI - General General Date of Admission: 03/16/22 Date of Service: 03/16/22 Chief Complaint: Speech difficulty HPI Narrative Anyi ANDRADE, is a 51 M who presents to the emergency room at [facility] with complaints of not being able to speak sentences, this started approximately 12 noon today and the patient became anxious because his father has had a history of a stroke and he was brought to the emergency room for evaluation, stroke team was called on the patient, he underwent a CTA of the head and neck as well as a CT of the head, no evidence of acute pathology was noted, patient's NIH score was 1 at the time of examination initially in the emergency room, it then went to 0 after he had been in the emergency room after couple of hours. Patient will be placed into observation status on PCU for TIA, he was given 600 mg of Plavix by telestroke today in the ER, he was not felt to be a candidate for tPA. Patient is already on a baby aspirin a day at home due to a previous cardiac stent that was put in at [facility] in the past. Patient is also on injectable medication for hyperlipidemia. [facility] Medical History (Updated 03/16/22 @ 14:[address] Iain Chin MD) Bilateral headaches High blood cholesterol Home Medications aspirin 81 mg tablet,delayed release 81 mg PO DAILY HEART HEALTH 02/12/19 [History Last Taken 03/16/22] evolocumab 140 mg/mL subcutaneous pen injector (Repatha SureClick) 140 mg subcut Q14D 03/16/22 [History Last Taken 03/08/22] gabapentin 100 mg capsule 300 mg PO TID NERVES 03/16/22 [History Last Taken 03/16/22] glucosamine sulf dipot chlr,msm,chond 550 mg-C 30 mg-raghu 1 mg capsule (Glucosam ine Chondroitin) 1 cap PO DAILY SUPPLEMENT 03/16/22 [History Last Taken 03/16/22] omega-3 fatty acids-vitamin E 1,000 mg capsule 1 cap PO DAILY SUPPLEMENT 03/16/22 [History Last Taken 03/16/22] Allergy/AdvReac Type Severity Reaction Status Date / Time hydrocodone [From Vicodin] Allergy Hives Verified 12/21/21 09:20 Family History Father Coronary arteriosclerosis Grandfather Coronary arteriosclerosis Other Cancer Surgical History (Updated 03/16/22 @ 15:30 by Salma Cui) H/O arthroscopic knee surgery History of shoulder surgery Social History Smoking Status: Never smoker alcohol intake: current alcohol intake frequency: holidays/special occasions only substance use type: does not use what type of physical activity do you participate in: aerobics and weight training ROS Constitutional Constitutional: Denies anorexia, change in weight, chills, fatigue, fever(s), night sweats or weakness Eyes Eyes: Denies blurry vision, change in vision, discharge from eye(s) or eye pain ENT HEENT: Denies abnormal hearing, dysphagia, ear pain or headache(s) Cardiovascular Cardiovascular: Denies chest pain, claudication, edema or palpitations Respiratory/Chest Respiratory/Chest: Denies cough, hemoptysis, shortness of breath at rest or shortness of breath with exertion Gastrointestinal Gastrointestinal: Denies abdominal pain, constipation, diarrhea, hematemesis, hematochezia, melena, nausea or vomiting Genitourinary Genitourinary: Denies dysuria, hematuria, urinary frequency, urinary hesitancy, urinary incontinence or urinary urgency Musculoskeletal Musculoskeletal: Denies back pain, joint pain, joint stiffness, joint swelling, myalgias or neck pain Neurologic Neurologic: Reports abnormal speech; Denies abnormal gait, confusion, disequilibrium, dizziness, focal weakness, headache(s), loss of vision, numbness, other visual disturbances, paresthesias, seizure-like activity, seizures, syncope or tingling Psychiatric Psychiatric: Denies anxiety, cognitive impairment, depression, irritability, mood swings or suicidal ideation Endocrine Endocrinology: Denies change in body appearance, cold intolerance, excessive sweating, heat intolerance, polydipsia or polyuria Hematologic/Lymphatic Hematologic/Lymphatic: Denies none, anemia, easy bleeding, easy bruising or lymphadenopathy Allergic/Immunologic Allergic/Immunologic: Denies rhinitis, urticaria, eczemia or asthma Vital Signs Vital Signs Vital Signs: 03/16/22 12:38 03/16/22 12:57 03/16/22 12:57 Temperature Temperature Source Pulse Rate 87 91 Respiratory Rate 18 16 Blood Pressure 127/91 H 155/90 H Blood Pressure Mean 103 111 Blood Pressure Source Blood Pressure Position Blood Pressure Location Pulse Ox 100 97 Oxygen Delivery Method Room Air Room Air Room Air 03/16/22 12:57 03/16/22 13:10 03/16/22 13:34 Temperature 97.8 F Temperature Source Temporal Pulse Rate 87 89 79 Respiratory Rate 18 22 H 19 H Blood Pressure 134/84 H 134/84 H 120/109 H Blood Pressure Mean 100 100 112 Blood Pressure Source Blood Pressure Position Blood Pressure Location Pulse Ox 95 95 94 Oxygen Delivery Method Room Air Room Air Room Air 03/16/22 13:30 03/16/22 14:00 03/16/22 15:00 Temperature Temperature Source Pulse Rate 79 73 Respiratory Rate 18 17 Blood Pressure 120/109 H 150/88 H Blood Pressure Mean 112 108 Blood Pressure Source Blood Pressure Position Blood Pressure Location Pulse Ox 94 97 Oxygen Delivery Method Room Air Room Air Room Air 03/16/22 15:30 03/16/22 14:30 03/16/22 15:00 Temperature 98.7 F Temperature Source Oral Pulse Rate 67 74 79 Respiratory Rate 16 20 H 18 Blood Pressure 136/89 H 153/85 H 139/81 H Blood Pressure Mean 104 107 100 Blood Pressure Source Monitor Blood Pressure Position Semi-Fowlers Blood Pressure Location Left Arm Pulse Ox 98 98 97 Oxygen Delivery Method Room Air Room Air Room Air 03/16/22 15:00 03/16/22 16:00 03/16/22 15:50 Temperature 97.9 F Temperature Source Temporal Pulse Rate 79 73 Respiratory Rate 18 Blood Pressure 139/81 H Blood Pressure Mean 100 Blood Pressure Source Blood Pressure Position Blood Pressure Location Pulse Ox 97 Oxygen Delivery Method Room Air Room Air Weight Weight: 104.6 kg Body Mass Index (BMI) 29.6 Physical Exam Const alert, oriented x3, no apparent distress and healthy appearing General Appearance: cooperative, well kempt and well developed Orientation / Consciousness: awake, oriented to person, oriented to place and oriented to time HEENT normocephalic and moist oral mucous membranes Eyes PERRL, EOMs intact bilaterally and conjunctivae normal Neck supple, no JVD, thyroid normal and no carotid bruits General: trachea midline Resp normal respiratory effort and clear to auscultation bilaterally Auscultation: Negative for rales, rhonchi or wheezes Cardio regular rate, regular rhythm, no murmurs, no rub and no gallops GI normal to inspection, nondistended, normoactive bowel sounds, soft to palpation, non-tender and non-distended Extremity no clubbing, cyanosis or edema Skin no rashes or lesions noted General Skin Exam: no breakdown Neuro oriented x3, CN's II-XII intact bilaterally, no focal motor deficits and no sensory deficits noted Sensorium / Orientation: awake, alert, oriented to person, oriented to place and oriented to time Speech: speech normal Motor Exam: strength 5/5 throughout Psych affect normal Results Lab / Micro Data Result Diagrams: 03/16/22 12:40 03/16/22 12:40 Labs: Laboratory Results - last 24 hr 03/16/22 12:40: WBC 7.6, RBC 4.88, Hgb 16.0, Hct 45.7, MCV 93.6, MCH 32.8 H, MCHC 35.0, RDW Std Deviation 40.4, RDW Coeff of Jaimie 11.8, Plt Count 225, MPV 11.1, Immature Gran % (Auto) 0.300, Neut % (Auto) 62.8, Lymph % (Auto) 22.8, Randolph % (Auto) 10.9 H, Eos % (Auto) 2.8, Baso % (Auto) 0.4, Absolute Neuts (auto) 4.8, Absolute Lymphs (auto) 1.73, Nucleated RBC % 0 03/16/22 12:40: PT 13.5, INR 1.1, APTT 29.7 03/16/22 12:40: Sodium 141, Potassium 4.3, Chloride 109 H, Carbon Dioxide 26.0, Anion Gap 6, BUN 20 H, Creatinine 1.08, Estim Creat Clear Calc 93.02, Est GFR (MDRD) Af Amer 92, Est GFR (MDRD) Non-Af 76, BUN/Creatinine Ratio 18.5, Glucose 122 H, Calcium 8.9, Troponin I High Sens 4 03/16/22 12:40: POC Glucose 144 H 03/16/22 13:09: POC Glucose 116 H Rhythm Strip Rhythm Strip: Sinus Rhythm Rate: 82 Ectopy: None Radiology Impression Brain CT 03/16/22 12:41 IMPRESSION: Normal unenhanced CT scan of the brain. N.B. : The above Results were Read Back by Dre Luna MD to Lavell Chin and understanding confirmed on 03/16/2022 12:52:39 (ET). Electronically Signed: Dre Luna MD at 12:53 EDT , ADDENDUM: 03/16/22 1300 IMPRESSION: Normal unenhanced CT scan of the brain. N.B. : The above Results were Read Back by Dre Luna MD to Lavell Chin and understanding confirmed on 03/16/2022 12:52:39 (ET). Electronically Signed: Dre Luna MD at 12:53 EDT , Head/Neck CTA 03/16/22 12:41 IMPRESSION: Minimal atherosclerotic plaque formation of the right internal carotid artery at its origin. Electronically Signed: Dre Luna MD at 13:14 EDT , ADDENDUM: 03/16/22 1325 IMPRESSION: Minimal atherosclerotic plaque formation of the right internal carotid artery at its origin. N.B. : The above Results were Read Back by Dre Luna MD to Dr Giuseppe MD, and understanding confirmed on 03/16/2022 13:18:06 (ET). Electronically Signed: Dre Luna MD at 13:14 EDT , Chest X-Ray 03/16/22 13:22 IMPRESSION: Hyperinflation. The lungs are clear. Prior right shoulder replacement. Electronically Signed: Dre Luna MD at 13:41 EDT , Assessment & Plan Assessment/Plan (1) Expressive aphasia: PLAN: Plan 1. TIA with expressive aphasia-symptoms are resolved at this time, patient will be placed in observation status on PCU, NIH scores will be monitored, patient will undergo an MRI of the brain, patient was placed on Plavix 75 mg daily and aspirin 81 mg daily. Again, patient is on an injectable medication for hyperlipidemia, he will undergo an echocardiogram tomorrow to rule out an ASD. #2 coronary artery disease-stable at this time, patient will remain on his pr esent medications #3 hyperlipidemia-again patient is on injectable medication for cholesterol #4 degenerative disc disease of the lumbar spine-patient is currently on gabapentin chronically Charges/Coding Visit Charges OBSV E&M: 49516 Initial observation care L3
[2022-03-17] VITALS (7 sets, daily range): BP systolic 119–134; BP diastolic 84–90; PULSE 59–78; RESP 16–20; TEMP 36.1–36.7; O2SAT 95–97; BMI 29.6
--- NOTE | 2022-03-17 04:14 | NURSING ---
pt is requesting gabapentin be administered 1x today with Aspirin in AM.
[2022-03-17] MEDS: Aspirin E.C. 81 MG Tablet PO (08:59)
[2022-03-17] MEDS: Clopidogrel Bisulfate 75 MG Tablet PO (09:00)
--- NOTE | 2022-03-17 13:19 | DCINST_ITS ---
Discharge Instructions Diet Discharge Diet: No restrictions Activity Discharge Activity: Return to Normal Activity Weight Bearing Status: Full weight bearing Follow Up Care Test Results: Test results from this visit will be discussed in further detail at your follow- up appointment, if applicable. Discharge Plan Admission Admit Date/Time: 03/16/22 15:30 Primary Reason for Your Visit: TIA Attending Provider: Shin Osborn Primary Care Provider: Lavonne Schultz Discharge Orders/Prescriptions Prescriptions: New clopidogrel [Plavix] 75 mg tablet 75 mg PO DAILY Qty: 30 0RF Continued aspirin 81 MG tablet,delayed release (DR/EC) 81 mg PO DAILY gabapentin 100 mg capsule 300 mg PO TID omega-3 fatty acids-vitamin E 1,000 mg Capsule 1 cap PO DAILY Repatha SureClick 140 mg/mL pen injector 140 mg SUBCUT Q14D Label Comments: INJECT 140MG UNDER THE SKIN EVERY 2 WEEKS Glucosamine Chondroitin 550-30-1 mg Capsule 1 cap PO DAILY Referrals / Follow Up: Lavonne Schultz, [Primary Care Provider] - Within 2 Weeks Disposition Disposition (needs filled in before D/C Order can be placed): Home, Self Care
--- NOTE | 2022-03-17 13:25 | PCM.DC.SUM ---
Providers Date of Admission: 03/16/22 Date of Discharge: 03/17/22 Primary Care Physician: Dr. Lavonne Schultz DO Reason For Visit: EXPRESSIVE APHASIA, R/O TIA Diagnosis Discharge Diagnosis (1) Expressive aphasia: Status: Acute Code(s): R47.01 - Aphasia Plan 1. TIA with expressive aphasia- #2 coronary artery disease-stable at this time, patient will remain on his present medications #3 hyperlipidemia-again patient is on injectable medication for cholesterol #4 degenerative disc disease of the lumbar spine-patient is currently on gabapentin chronically #5 atrial septal defect Medications at Discharge Home Medications aspirin 81 mg tablet,delayed release 81 mg PO DAILY HEART HEALTH 02/12/19 evolocumab 140 mg/mL subcutaneous pen injector (Repatha SureClick) 140 mg subcut Q14D 03/16/22 gabapentin 100 mg capsule 300 mg PO TID NERVES 03/16/22 glucosamine sulf dipot chlr,msm,chond 550 mg-C 30 mg-raghu 1 mg capsule (Glucosamine Chondroitin) 1 cap PO DAILY SUPPLEMENT 03/16/22 omega-3 fatty acids-vitamin E 1,000 mg capsule 1 cap PO DAILY SUPPLEMENT 03/16/22 clopidogrel 75 mg tablet (Plavix) 75 mg PO DAILY #30 tabs 03/17/22 Hospital Course Operations None Procedures 2-D Echocardiogram Summary of Care Provided Minutes Spent on Discharge: 31 Hospital Course: This 51-year-old white male was seen in the emergency room at [facility] complaining of an episode of expressive aphasia was lasted approximately 2 to 3 hours and ended while he was in the emergency room. Patient stated that at approximately 12 noon on 03/16/2022, patient had trouble forming sentences, he denied any slurred speech, he denied any focal weakness. A stroke team was called, work-up in the emergency room included a CTA of the head and neck, no evidence of occlusive disease was noted and there was no evidence of acute intracranial pathology. Teleneurology instructed the ER physician to give the patient 600 mg of Plavix, patient was placed into observation status on PCU, an MRI was obtained and the patient underwent an echocardiogram. MRI showed no evidence of acute stroke, patient's echocardiogram showed the presence of an atrial septal defect. Patient was placed on Plavix and aspirin during his hospital stay. His statin was continued. Patient was seen by PT and OT as well as speech therapy, it was not recommended that the patient needed follow-up as an outpatient. On 03/17/2022, patient was seen and examined: On examination he appeared in good health and spirits. Vital signs as documented. Skin warm and dry and without overt rashes. Neck without JVD, neck was supple, trachea midline, thyroid was normal. Lungs clear bilaterally, normal air movement was noted. Heart exam notable for regular rhythm, normal sounds and absence of murmurs, rubs or gallops. Abdomen unremarkable and without evidence of organomegaly, masses, or abdominal aortic enlargement. Bowel sounds are present, abdomen is not distended. Extremities nonedematous, no cyanosis was noted, no clubbing was noted. Neuro: Cranial nerves II through XII are grossly intact, no focal motor deficits were noted, sensation to light touch and pinprick intact, motor exam 5/5 throughout. Psych: Patient is alert and oriented x3, he does not appear anxious or depressed, he does not appear agitated. On 03/17/2022, patient was felt to be stable for discharge, I contacted his PCP (Dr. Schultz) and discussed his medical care with her. On 03/17/2022, patient was seen and examined felt to be stable for discharge home Weight / BMI Weight Weight: 104.6 kg Body Mass Index (BMI) 29.6 ABG / Lab / Microbiology Data Result Diagrams: 03/16/22 12:40 03/16/22 12:40 Laboratory: Laboratory Results - last 24 hr 03/16/22 13:09: POC Glucose 116 H Radiography Diagnostic Testing: Radiology Impression Head/Neck CTA 03/16/22 12:41 IMPRESSION: Minimal atherosclerotic plaque formation of the right internal carotid artery at its origin. Electronically Signed: Dre Luna MD at 13:14 EDT , ADDENDUM: 03/16/22 1112 IMPRESSION: Minimal atherosclerotic plaque formation of the right internal carotid artery at its origin. N.B. : The above Results were Read Back by Dre Luna MD to Dr Giuseppe MD, and understanding confirmed on 03/16/2022 13:18:06 (ET). Electronically Signed: Dre Luna MD at 13:14 EDT , Chest X-Ray 03/16/22 13:22 IMPRESSION: Hyperinflation. The lungs are clear. Prior right shoulder replacement. Electronically Signed: Dre Luna MD at 13:41 EDT , Brain MRI 03/16/22 15:39 IMPRESSION: Normal unenhanced MRI of the brain Right maxillary bilateral ethmoid sinusitis likely chronic Electronically Signed: Lavell Cuellar MD at 20:28 EDT , Echocardiogram 03/16/22 15:44 Interpretation Summary The left ventricular ejection fraction is 60 %. Bublle study positive, suggstive of PFO Ordering Physician: Shin Osborn Referring Physician: Lavonne Schultz Performed By: Kira Delarosa RDCS, RVT D/C Instructions Discharge Diet: No restrictions Weight Bearing Status: Full weight bearing Meaningful Use Info Meaningful Use Diagnoses (Choose all that apply): None applicable Discharge Plan Admission Admit Date/Time: 03/16/22 15:30 Primary Reason for Your Visit: TIA Attending Provider: Shin Osborn Primary Care Provider: Lavonne Schultz Discharge Orders/Prescriptions Prescriptions: New clopidogrel [Plavix] 75 mg tablet 75 mg PO DAILY Qty: 30 0RF Continued aspirin 81 MG tablet,delayed release (DR/EC) 81 mg PO DAILY gabapentin 100 mg capsule 300 mg PO TID omega-3 fatty acids-vitamin E 1,000 mg Capsule 1 cap PO DAILY Repatha SureClick 140 mg/mL pen injector 140 mg SUBCUT Q14D Label Comments: INJECT 140MG UNDER THE SKIN EVERY 2 WEEKS Glucosamine Chondroitin 550-30-1 mg Capsule 1 cap PO DAILY Referrals / Follow Up: Antoine,Lavonne, [Primary Care Provider] - Within 2 Weeks Disposition Disposition (needs filled in before D/C Order can be placed): Home, Self Care Charges/Coding Visit Charges OBSV E&M: 22319 Observation care discharge
== END 2022-03-17 13:25 | disposition home or self-care (01) ==
LOC: ED 13:23 → PCU 15:25
PROVIDERS: Admitting Provider Internal Medicine; Emergency Provider Emergency Medicine; PCP Internal Medicine; Visit Provider Internal Medicine
DX: G45.9 Transient cerebral ischemic attack, unspecified (principal); R47.01 Aphasia; Q21.10 Atrial septal defect, unspecified; E78.00 Pure hypercholesterolemia, unspecified; Z79.82 Long term (current) use of aspirin; M51.36 Other intervertebral disc degeneration, lumbar region; Z79.899 Other long term (current) drug therapy; I25.2 Old myocardial infarction; Z95.5 Presence of coronary angioplasty implant and graft; Z82.49 Family history of ischemic heart disease and other diseases of the circulatory system; R47.89 Other speech disturbances
CPT/HCPCS: 70450; 70496; 70498; 70551; 71045; 80048; 82962; 84484; 85025; 85610; 85730; 93005; 93306; 96360; 99218; 99285; J7030; J7040; Q9967; A4216; G0378

== ENCOUNTER → 2022-07-09 | Outpatient (CLI) | payer OTHER, SELFPAY ==
--- NOTE | 2022-07-09 12:35 | LES_PTH ---
PATIENT: Anyi ANDRADE LOC: [facility] U#:[id number] AGE/SX: 52/M ROOM: RE07/09/[address]: Dr. Moses Matt MD : 1970 BED: DIS: 07/09/2022 SPEC #: [id number] RECD: 07/09/22 14:50 STATUS: ALISON ALICIA #: [id number] JEREMY: 07/09/22 12:[address]: Moses Matt DEPT: SURGICAL PATHOLOGY RECD BY: Celia Isaac ENTERED: 07/10/22 13:13 SP TYPE: Lesion OTHR DR: Dr. Lavonne Schultz, [facility] Tissues: Skin of lip, NOS Procedures: Surgery Specimen Level IV HEADER OPERATION: Excision lower lip lesion PRE-OP DIAGNOSIS: Mucocele of salivary gland TISSUE SUBMITTED: Left lower lip lesion MICROSCOPIC DIAGNOSIS Left lower lip lesion, biopsy: Consistent with ruptured mucus cyst and associated reparative and reactive change. AM:reshma 07/11/2022 MICROSCOPIC DESCRIPTION Slides are reviewed. GROSS DESCRIPTION Received in fixative is one container labeled with the patient's name and designated left lower lip lesion. The specimen consists of a piece of ponce mucosal tissue measuring 0.6 x 0.6 x 0.5 cm. A small piece of ponce soft tissue is also present measuring 0.4 x 0.3 x 0.1 cm. The larger piece is inked and bisected. The entire specimen is submitted in one cassette. / SJ:reshma 07/10/2022 TC:3 CPT: 27613
== END | disposition home or self-care (01) ==
LOC: LABSPEC 15:18
PROVIDERS: PCP Internal Medicine; Referring Provider Otolaryngology; Visit Provider Otolaryngology
DX: K11.6 Mucocele of salivary gland (principal)
CPT/HCPCS: 88305

== ENCOUNTER → 2023-04-15 | Outpatient (CLI) | payer OTHER, SELFPAY ==
--- NOTE | 2023-04-15 10:00 | CDU_ITS ---
Reason For Study: Carotid Stenosis Rt. Velocities/BP Lt. Velocities/BP Prox CCA 113/19 cm/sec. Prox CCA 96/22 cm/sec. Mid CCA 95/23 cm/sec. Mid CCA 103/20 cm/sec. Dist CCA 84/22 cm/sec. Dist CCA 82/24 cm/sec. Prox ICA 79/21 cm/sec. Prox ICA 56/16 cm/sec. Mid ICA 71/28 cm/sec. Mid ICA 38/14 cm/sec. Dist ICA 72/33 cm/sec. Dist ICA 52/25 cm/sec. Rt. ICA/CCA = 0.8. Lt. ICA/CCA = 0.5. Prox ECA 66/6 cm/sec. Prox ECA 66/12 cm/sec. Rt. Vert. 30/7 cm/sec. Lt. Vert. 45/15 cm/sec. Right Extracranial There is intimal thickening but no significant atherosclerotic plaque noted in the right common carotid artery. There is intimal thickening but no significant atherosclerotic plaque noted in the right internal carotid artery. There is no significant atherosclerotic plaque noted in the right external carotid artery. Antegrade flow is noted in the right vertebral artery. Left Extracranial There is intimal thickening but no significant atherosclerotic plaque noted in the left common carotid artery. There is heterogeneous, irregular atherosclerotic plaque noted in the left internal carotid artery. There is no significant atherosclerotic plaque noted in the left external carotid artery. Antegrade flow is noted in the left vertebral artery. Procedure Carotid Duplex 99505. This is a Carotid Duplex examination using B-mode, color flow and specral Doppler. Exam performed in department. VL/Carotid Duplex Ultrasound Interpretation Summary No significant atherosclerotic plaque or stenosis noted in the right internal c arotid artery. Mild (<50%) stenosis left extracranial internal carotid. Flow within the vertebral a rteries is antegrade bilaterally. Ordering Physician: Lavonne Schultz Referring Physician: Lavonne Schultz Performed By: Kira Delarosa, RDCS, RVT
== END | disposition home or self-care (01) ==
LOC: CVS 09:58
PROVIDERS: PCP Internal Medicine; Referring Provider Internal Medicine; Visit Provider Internal Medicine
DX: I65.21 Occlusion and stenosis of right carotid artery (principal)
CPT/HCPCS: 93880

== ENCOUNTER → 2023-09-12 | Outpatient (CLI) | payer OTHER, SELFPAY | END | disposition home or self-care (01) | PROVIDERS: PCP Internal Medicine; Visit Provider Internal Medicine | DX: G47.10 Hypersomnia, unspecified (principal); R06.81 Apnea, not elsewhere classified; R06.83 Snoring | CPT/HCPCS: 95810 ==

== ENCOUNTER → 2023-11-18 | Outpatient (CLI) | payer OTHER, SELFPAY ==
--- NOTE | 2023-11-18 08:11 | EKG12_ITS ---
Test Reason : PREOP Blood Pressure : / mmHG Vent. Rate : 064 BPM Atrial Rate : 064 BPM P-R Int : 160 ms QRS Dur : 094 ms QT Int : 384 ms P-R-T Axes : 028 001 011 degrees QTc Int : 396 ms Normal sinus rhythm Normal ECG Confirmed by HEYDI HOPKINS, EDUAR ([id number]), commissioning editor SUE SALDIVAR ([id number]) on 11/19/2023 6:05:26 AM Referred By: Moses Matt Confirmed By:EDUAR SOLIZ MD
[2023-11-18 09:25] LABS: Hematocrit 48.3 % (40-54); Hemoglobin 16.2 g/dL (13.0-16.5); Mean Corp Hgb Conc 33.5 g/dL (32-36); Mean Corpuscular Hgb 31.5 pg (27.0-32.0); Mean Platelet Vol. 11.2 fl (6.2-12.0); Platelet Count 245 K/mm3 (150-450); RBC Distribution Width CV 11.9 % (11.6-14.6); RBC Distribution Width SD 41.6 fl (35.1-43.9); Red Blood Count 5.14 M/mm3 (4.6-6.2); White Blood Count 6.4 K/mm3 (4.4-11.0)
[2023-11-18 09:51] LABS: Anion Gap 3 (5-15); BUN 16 mg/dL (7-18); BUN/Creat Ratio 16.6 RATIO (10-20); Chloride 111 mmol/L (98-107); Creatinine, Serum 0.96 mg/dL (0.70-1.30); EST Glomerular Filtration Rate 86 mL/min (>60); Est Glom Filt Rate - Afr Amer 105 mL/min (>60); Glucose 114 mg/dL (74-106); Potassium 4.2 mmol/L (3.5-5.1); Sodium Level 141 mmol/L (136-145)
== END | disposition home or self-care (01) ==
LOC: PSN 08:11
PROVIDERS: PCP Internal Medicine; Referring Provider Otolaryngology; Visit Provider Otolaryngology
DX: Z01.818 Encounter for other preprocedural examination (principal)
CPT/HCPCS: 36415; 80048; 85027; 93005

== ENCOUNTER → 2023-12-09 | Outpatient (CLI) | payer OTHER, SELFPAY ==
--- NOTE | 2023-12-09 | UV_PTH ---
PATIENT: Anyi ANDRADE LOC: [facility] U#:[id number] AGE/SX: 53/M ROOM: RE12/09/[address]: Dr. Moses Matt MD : [id number] BED: DIS: 12/09/2023 SPEC #: [id number] RECD: 12/10/23 08:43 STATUS: ALISON ALICIA #: [id number] JEREMY: 12/09/23 00:[address]: Moses Matt DEPT: SURGICAL PATHOLOGY RECD BY: Garth Vogel ENTERED: 12/10/23 08:43 SP TYPE: UVULA OTHR DR: Dr. Lavonne Schultz, [facility] Tissues: Uvula palatina Procedures: Surgery Specimen Level III HEADER OPERATION: Uvulectomy PRE-OP DIAGNOSIS: Dysphagia, oropharyngeal phase TISSUE SUBMITTED: Uvula MICROSCOPIC DIAGNOSIS Uvula, uvulectomy: A fragment of squamous mucosa consistent with uvula with chronic inflammation and reactive changes. SJ/mr 12/11/2023 MICROSCOPIC DESCRIPTION Slides are reviewed. GROSS DESCRIPTION Received in fixative is one container labeled with the patient's name and designated Uvula. The specimen consists of a piece of ponce mucosal tissue measuring 1.0 x 1.0 x 0.5cm. The specimen is inked, bisected and submitted in entirely in one cassette. / 12/10/2023 TC:5 CPT:55525
== END | disposition home or self-care (01) ==
LOC: LABSPEC 15:25
PROVIDERS: PCP Internal Medicine; Referring Provider Otolaryngology; Visit Provider Otolaryngology
DX: R13.12 Dysphagia, oropharyngeal phase (principal)
CPT/HCPCS: 88304

== ENCOUNTER → 2024-01-21 | Outpatient (CLI) | payer OTHER, SELFPAY | END | disposition home or self-care (01) | LOC: SL 08:16 | PROVIDERS: PCP Internal Medicine; Referring Provider Nurse Practitioner Acute Care; Visit Provider Nurse Practitioner Acute Care | DX: G47.33 Obstructive sleep apnea (adult) (pediatric) (principal) | CPT/HCPCS: 95806 ==

== ENCOUNTER → 2024-02-13 | Outpatient (CLI) | payer OTHER, SELFPAY | END | disposition home or self-care (01) | LOC: SL 12:27 | PROVIDERS: PCP Internal Medicine; Referring Provider Nurse Practitioner Acute Care; Visit Provider Nurse Practitioner Acute Care | DX: G47.33 Obstructive sleep apnea (adult) (pediatric) (principal) | CPT/HCPCS: 95806 ==

== ENCOUNTER → 2024-03-26 | Outpatient (CLI) | payer OTHER, SELFPAY ==
--- NOTE | 2024-03-26 08:03 | CDU_ITS ---
Reason For Study: Carotid stenosis Rt. Velocities/BP Lt. Velocities/BP Prox CCA 85/21.2 cm/sec. Prox CCA 102.5/22.3 cm/sec. Mid CCA 105.8/22.3 cm/sec. Mid CCA 105.8/33.3 cm/sec. Dist CCA 71.8/19 cm/sec. Dist CCA 90.5/28.9 cm/sec. Prox ICA 44.7/17.3 cm/sec. Prox ICA 43.2/20.1 cm/sec. Mid ICA 70.2/32.4 cm/sec. Mid ICA 64.1/24.5 cm/sec. Dist ICA 65.5/25.8 cm/sec. Dist ICA 63/26.7 cm/sec. Rt. ICA/CCA = 0.66. Lt. ICA/CCA = 0.61. Prox ECA 65.5/10.7 cm/sec. Prox ECA 74/16.8 cm/sec. Rt. Vert. 35.2/10.7 cm/sec. Lt. Vert. 40.9/14.5 cm/sec. Right Extracranial There is intimal thickening but no significant atherosclerotic plaque noted in the right common carotid artery. There is intimal thickening but no significant atherosclerotic plaque noted in the right internal carotid artery. There is intimal thickening but no significant atherosclerotic plaque noted in the right external carotid artery. Antegrade flow is noted in the right vertebral artery. Left Extracranial There is intimal thickening but no significant atherosclerotic plaque noted in the left common carotid artery. There is heterogeneous, irregular atherosclerotic plaque noted in the left internal carotid artery. There is intimal thickening but no significant atherosclerotic plaque noted in the left external carotid artery. Antegrade flow is noted in the left vertebral artery. Procedure Carotid Duplex 54313. This is a Carotid Duplex examination using B-mode, color flow and specral Doppler. Exam performed in department. VL/Carotid Duplex Ultrasound Interpretation Summary Normal right extracranial internal carotid. Mild (<50%) stenosis left extracranial internal carotid. Patent and antegrade vertebrals bilaterally. Ordering Physician: Lavonne Schultz Referring Physician: Lavonne Schultz Performed By: Bina Roberts RVT
== END | disposition home or self-care (01) ==
LOC: CVS 08:03
PROVIDERS: PCP Internal Medicine; Referring Provider Internal Medicine; Visit Provider Internal Medicine
DX: I65.21 Occlusion and stenosis of right carotid artery (principal)
CPT/HCPCS: 93880

== ENCOUNTER → 2024-04-30 | Outpatient (CLI) | payer OTHER, SELFPAY | END | disposition home or self-care (01) | LOC: SL 20:02 | PROVIDERS: PCP Internal Medicine; Referring Provider Nurse Practitioner Acute Care; Visit Provider Nurse Practitioner Acute Care | DX: G47.33 Obstructive sleep apnea (adult) (pediatric) (principal) | CPT/HCPCS: 95811 ==

== ENCOUNTER → 2024-07-21 | Outpatient (CLI) | payer OTHER, SELFPAY | END | disposition home or self-care (01) | LOC: SL 13:36 | PROVIDERS: PCP Internal Medicine; Visit Provider Nurse Practitioner Acute Care | DX: Z46.89 Encounter for fitting and adjustment of other specified devices (principal); G47.33 Obstructive sleep apnea (adult) (pediatric) ==

== ENCOUNTER → 2025-03-23 | Outpatient (CLI) | payer OTHER, SELFPAY ==
[2025-03-23 12:37] LABS: Creatinine, Urine (random) 180.00 mg/dL (39.00-259.00); FOLATES,SERUM (FOLIC ACID) 15.40 ng/mL (4.60-34.80); Microalbumin,Random Urine < 12.0 mg/L (<20 mg/L)
[2025-03-23 12:39] LABS: AST(SGOT) 22 U/L (<=37); Alanine Aminotransfer ALT/SGPT 17 U/L (<=46); Albumin, Serum 4.2 g/dL (3.5-5.0); Alkaline Phosphatase 59 U/L (40-129); Anion Gap 12 (5-15); BUN 18 mg/dL (4-19); BUN/Creat Ratio 19.8 RATIO (10-20); Calcium,Total 9.1 mg/dL (7.6-11.0); Carbon Dioxide 21.0 mmol/L (21.0-32.0); Chloride 109 mmol/L (98-108); Cholesterol 122 mg/dL (<=200); Globulin 2.4 g/dL (2.2-4.2); Glucose 96 mg/dL (70-99); Low Density Lipoprotein Calc. 52 mg/dL; Potassium 4.1 mmol/L (3.3-5.1); Triglycerides 97 mg/dL; Very Low Density Lipoprotein 19 mg/dL (5-40); cholesterol:hdl ratio screen 2.41
[2025-03-23 12:43] LABS: Vitamin B12 405 pg/mL (180-914); Vitamin D,25 Hydroxy 45.3 ng/mL (30-100)
== END | disposition home or self-care (01) ==
LOC: MTLAB 09:27
PROVIDERS: PCP Internal Medicine; Referring Provider Internal Medicine; Visit Provider Internal Medicine
DX: R73.01 Impaired fasting glucose (principal); E78.2 Mixed hyperlipidemia; E55.9 Vitamin D deficiency, unspecified
CPT/HCPCS: 36415; 80053; 80061; 82043; 82306; 82570; 82607; 82746; 83036

== ENCOUNTER 2025-05-24 07:57 | Outpatient (CLI) | payer OTHER, SELFPAY ==
--- NOTE | 2025-05-24 08:01 | CDU_ITS ---
Reason For Study Reason For Study: Carotid Stenosis Rt. Velocities/BP Lt. Velocities/BP Prox CCA 110/26 cm/sec. Prox CCA 135/35 cm/sec. Mid CCA 115/27 cm/sec. Mid CCA 108/26 cm/sec. Dist CCA 93/27 cm/sec. Dist CCA 96/30 cm/sec. Prox ICA 90/19 cm/sec. Prox ICA 79/20 cm/sec. Mid ICA 81/33 cm/sec. Mid ICA 63/27 cm/sec. Dist ICA 72/37 cm/sec. Dist ICA 69/34 cm/sec. Rt. ICA/CCA = 0.8. Lt. ICA/CCA = 0.7. Prox ECA 82/17 cm/sec. Prox ECA 111/27 cm/sec. Rt. Vert. 38/12 cm/sec. Lt. Vert. 48/19 cm/sec. Right Extracranial There is intimal thickening but no significant atherosclerotic plaque noted in the right common carotid artery. There is intimal thickening but no significant atherosclerotic plaque noted in the right internal carotid artery. There is intimal thickening but no significant atherosclerotic plaque noted in the right external carotid artery. Antegrade flow is noted in the right vertebral artery. Left Extracranial There is heterogeneous, irregular atherosclerotic plaque noted in the left common carotid artery. There is intimal thickening but no significant atherosclerotic plaque noted in the left internal carotid artery. There is intimal thickening but no significant atherosclerotic plaque noted in the left external carotid artery. Antegrade flow is noted in the left vertebral artery. Procedure Carotid Duplex 81101. This is a Carotid Duplex examination using B-mode, color flow and specral Doppler. Exam performed in department. VL/Carotid Duplex Ultrasound Interpretation Summary Normal right extracranial internal carotid. Normal left extracranial internal carotid. Patent and antegrade vertebrals bilaterally. Ordering Physician: Lavonne Schultz Referring Physician: Lavonne Schultz Performed By: Kira Delarosa, MADI, RVT
== END 2025-05-24 23:59 | disposition home or self-care (01) ==
PROVIDERS: PCP Internal Medicine; Referring Provider Internal Medicine; Visit Provider Internal Medicine
DX: I65.23 Occlusion and stenosis of bilateral carotid arteries (principal)
CPT/HCPCS: 93880